=== PATIENT | male | born 1950 | race Caucasian/White ===

== ENCOUNTER 2018-05-06 17:34 | Inpatient (IN) | payer MEDICARE, SELFPAY ==
[2018-05-06] VITALS (8 sets, daily range): BP systolic 123–180; BP diastolic 69–106; PULSE 69–79; RESP 18; TEMP 36.4–36.8; O2SAT 85–94; BMI 41.1; BMI 40.4
--- NOTE | 2018-05-06 17:56 | EKG12_ITS ---
Test Reason : SYNCOPE Blood Pressure : / mmHG Vent. Rate : 069 BPM Atrial Rate : 069 BPM P-R Int : 238 ms QRS Dur : 106 ms QT Int : 462 ms P-R-T Axes : 014 -33 047 degrees QTc Int : 495 ms Sinus rhythm with 1st degree A-V block with occasional Premature ventricular complexes Left axis deviation Low voltage QRS Abnormal ECG Confirmed by SIS HYDE, SCHUYLER ([id number]), communications editor SARI PEREIRA ([id number]) on 05/08/2018 11:19:15 AM Referred By: Nina Castrejon Confirmed By:SCHUYLER ALEGRE MD
--- NOTE | 2018-05-06 18:00 | RAD_ITS ---
STUDY: X-RAY CHEST REASON FOR EXAM: Male, 67 years old. Syncopal episode at home today, nausea TECHNIQUE: AP COMPARISON: None. FINDINGS: EKG leads project over the chest. Lungs are underexpanded. Central pulmonary vascular congestion identified but no airspace consolidation. There is no demonstrated pleural abnormality. There is mild cardiac enlargement. Two lead cardiac conduction device is seen via the left subclavian vein with lead tips projecting over the right atrium and right ventricle, respectively. Normal visualized pulmonary arteries. There is atherosclerotic calcification of the aortic arch with tortuosity. Normal visualized thoracic spine. Normal visualized ribs, clavicles, and shoulders. There is no demonstrated abnormality of the visualized soft tissue structures of the upper abdomen. RAD/Chest 1 View (Portable) IMPRESSION: 1. No airspace consolidation or pleural effusion. 2. Suspect chronic CHF. Electronically Signed: Denis Fox MD at 19:10 EDT , Service support ,
--- NOTE | 2018-05-06 18:06 | ED.VISSUMM ---
- ER Visit Summary Date of Service: 05/06/18 Chief Complaint: Passed out at home History of Present Illness: The patient is a 67 M history of prior CVA, CAD, [place], CHF, cardiac stents, insulin-dependent diabetes, renal insufficiency and pacemaker defibrillator. Patient was not feeling well today and had a near syncopal event. Was given water and was feeling better. Later today he was standing up and had a syncopal episode where he passed out fell back on a chair of the couch. According to his he was unconscious for approximately 10 minutes. She did not feel like he was breathing. She called the squad who brought the patient into the emergency department. At that time his blood sugar was around 100. He denied any headache, chest pain, shortness of breath or abdominal pain prior to the episode. She states she is just been generally weak with decreased energy over the last several weeks. No fever. No recent hospitalizations. Physical Examination: Older male. Vital signs are stable. Afebrile. Pulse ox 93%. No hypoxia. That is on oxygen. H EENT exam unremarkable. No facial trauma. Pupils round reactive light. Neck nontender. Lungs clear to auscultation bilaterally. Heart regular rhythm no murmur. Chest wall nontender. Abdomen soft and nontender. Obese. No peritoneal signs. No pulsatile mass. Patient is moving all 4 extremities. They are neurovascularly intact. 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 Dorsi and plantar flexion intact. Back is nontender. Neurologically is awake and alert. Moving all 4 extremities. He is answering questions and following commands. There is no slurred speech. No focal motor deficits. Test Results: CBC White count 9. Hemoglobin 12. No old labs available for comparison. Chemistries unremarkable gap is 7 creatinine 1.2. Troponin normal. Chest x-ray borderline cardiomegaly with a left-sided pacer defibrillator. EKG sinus rhythm rate of 69 with PVCs and a first-degree AV block. No old EKG available for comparison. Orthostatic vital signs are negative. Emergency Department Course and Treatment: Male with syncopal episode that will need to be admitted. Treatment Plan: Repeat exam patient is doing well at 1900. I did speak to he and his he has a pacemaker defibrillator has been checked for about a year. He will need this interrogated and worked up for syncope. I have already spoken to the hospitalist and the patient will be admitted to the PCU. Disposition: Admission Impression: Acute syncope of uncertain etiology History of CAD, [place], CVA, cardiac stents, pacemaker defibrillator History of insulin-dependent diabetes This note was generated with [employer] dictation software. It may contain incorrect words, spelling, and punctuation that were not noted in review of the chart prior to signing ED Disposition - Plan for ED Patient: Referrals: Pancho Todd DO [STAFF PHYSICIAN] -
[2018-05-06 18:08] LABS: Absolute Lymphocyte Count 3.84 X10^3/ul (0.83-4.51); Absolute Neutrophil Count 5.1 X10^3/uL (2.0-7.7); Basophil# 0.04 X10^3/uL; Basophil% 0.4 % (0-1); Eosinophil# 0.26 X10^3/uL; Eosinophils% 2.7 % (0-5); Hematocrit 39.7 % (40-54); Hemoglobin 12.1 g/dl (13.0-16.5); Lymphocyte # 3.84 X10^3/ul (4.0); Lymphocyte % 39.2 % (19-41); Mean Corp Hgb Conc 30.5 g/gl (32-36); Mean Corpuscular Hgb 28.5 pg (27.0-32.0); Mean Corpuscular Volume 93.6 fL (80-94); Monocyte# 0.55 X10^3/uL; Monocyte% 5.6 % (0-10); Neutrophil # 5.09 X10^3/uL (2.7-7.7); Neutrophil % 51.9 % (47-70); Platelet Count 293 K/mm3 (150-450); RBC Distribution Width SD 44.2 fl (35.1-43.9); Red Blood Count 4.24 M/mm3 (4.6-6.2); White Blood Count 9.8 K/mm3 (4.4-11.0)
[2018-05-06 18:09] LABS: POSITIVE COUNT NO; POSITIVE DIFFERENTIAL NO; POSITIVE MORPHOLOGY NO
--- NOTE | 2018-05-06 18:09 | ED.DCSUM_ITS ---
- ER Visit Summary Date of Service: 05/06/18 Chief Complaint: Passed out at home History of Present Illness: The patient is a 67 M history of prior CVA, CAD, [place], CHF, cardiac stents, insulin-dependent diabetes, renal insufficiency and pacemaker defibrillator. Patient was not feeling well today and had a near syncopal event. Was given water and was feeling better. Later today he was standing up and had a syncopal episode where he passed out fell back on a chair of the couch. According to his he was unconscious for approximately 10 minutes. She did not feel like he was breathing. She called the squad who brought the patient into the emergency department. At that time his blood sugar was around 100. He denied any headache, chest pain, shortness of breath or abdominal pain prior to the episode. She states she is just been generally weak with decreased energy over the last several weeks. No fever. No recent hospitalizations. Physical Examination: Older male. Vital signs are stable. Afebrile. Pulse ox 93%. No hypoxia. That is on oxygen. H EENT exam unremarkable. No facial trauma. Pupils round reactive light. Neck nontender. Lungs clear to auscultation bilaterally. Heart regular rhythm no murmur. Chest wall nontender. Abdomen soft and nontender. Obese. No peritoneal signs. No pulsatile mass. Patient is moving all 4 extremities. They are neurovascularly intact. He has equal symmetrical radio division captain strength. Dorsi and plantar flexion intact. Back is nontender. Neurologically is awake and alert. Moving all 4 extremities. He is answering questions and following commands. There is no slurred speech. No focal motor deficits. Test Results: CBC White count 9. Hemoglobin 12. No old labs available for comparison. Chemistries unremarkable gap is 7 creatinine 1.2. Troponin normal. Chest x-ray borderline cardiomegaly with a left-sided pacer defibrillator. EKG sinus rhythm rate of 69 with PVCs and a first-degree AV block. No old EKG available for comparison. Orthostatic vital signs are negative. Emergency Department Course and Treatment: Male with syncopal episode that will need to be admitted. Treatment Plan: Repeat exam patient is doing well at 1900. I did speak to he and his he has a pacemaker defibrillator has been checked for about a year. He will need this interrogated and worked up for syncope. I have already spoken to the hospitalist and the patient will be admitted to the PCU. Disposition: Admission Impression: Acute syncope of uncertain etiology History of CAD, [place], CVA, cardiac stents, pacemaker defibrillator History of insulin-dependent diabetes This note was generated with [employer] dictation software. It may contain incorrect words, spelling, and punctuation that were not noted in review of the chart prior to signing ED Disposition - Plan for ED Patient: Referrals: Pancho Todd DO [STAFF PHYSICIAN] -
[2018-05-06 18:21] LABS: Anion Gap 7 (5-15); BUN 17 mg/dL (7-18); BUN/Creat Ratio 14.2 RATIO (10-20); Chloride 102 mmol/L (98-107); EST Glomerular Filtration Rate 64 mL/min (>60); Est Glom Filt Rate - Afr Amer 78 mL/min (>60); Estimated Creatinine Clearance 64.49 ml/min; Glucose 174 mg/dL (74-106); Potassium 4.5 mmol/L (3.5-5.1); Sodium Level 137 mmol/L (136-145)
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
[2018-05-06] MEDS: Ondansetron 4 MG/2 ML Vial IV (19:02)
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
--- NOTE | 2018-05-06 21:50 | ECHOCS_ITS ---
Reason For Study: SYNCOPE/NEAR SYNCOPE Procedure This was a 2D Doppler, Color Flow transthoracic echocardiogram. The study was technically difficult. The study was technically limited. Exam performed portable in patient room. Left Ventricle Moderately dilated left ventricle. The estimated ejection fraction is 25 %. Stage 2 diastolic dysfunction. There is moderate to severe global hypokinesis of the left ventricle. Right Ventricle Normal size and thickness. Normal systolic function. Atria Normal left atrium. Normal right atrium. Normal atrial septum. Mitral Valve The mitral valve is structurally normal. No prolapse or stenosis seen. Tricuspid Valve Normal tricuspid valve. Unable to estimate RV systolic pressure due to inadequate jet, pulmonary artery pressure probably normal. Aortic Valve Normal aortic valve. Trisinus/trileaflet aortic valve. Pulmonic Valve The pulmonic valve is not well visualized. Great Vessels Normal aortic root. Normal arch. Normal inferior vena cava. Inferior vena cava collapse with sniff. Pericardium/Pleural No pericardial effusion. Medication Diluted definity 4ml given slow IV push to enhance endocardial definition. MMode/2D Measurements & Calculations LVIDd: 5.7 cm IVSd: 1.0 cm Ao root diam: 3.5 cm LVIDs: 4.3 cm LVPWd: 0.98 cm FS: 25.0 % LAV(MOD-sp2): 56.9 ml LA dimension(2D): 3.6 cm Time Measurements MV dec time: 0.18 sec Doppler Measurements & Calculations MV E max nativiadd: 87.1 cm/sec Ao V2 max: 109.8 cm/sec LV V1 max: 77.1 cm/sec MV A max natividad: 65.8 cm/sec Ao max P.8 mmHg LV V1 max P.4 mmHg MV E/A: 1.3 PA V2 max: 95.7 cm/sec Interpretation Summary Moderately dilated left ventricle. The estimated ejection fraction is 25 %. Stage 2 diastolic dysfunction. There is moderate to severe global hypokinesis of the left ventricle. Unable to estimate RV systolic pressure due to inadequate jet, pulmonary artery pressure probably normal. The study was technically difficult. There is no comparison study available. Contrast injection was performed. Ordering Physician: Nina Castrejon Referring Physician: ADAMARIS WEINER Performed By: Shelly Meyers RDCS
--- NOTE | 2018-05-06 21:50 | CDU_ITS ---
Reason For Study: SYNCOPE Rt. Velocities/BP Lt. Velocities/BP Prox CCA 100/14 cm/sec. Prox CCA 127/16 cm/sec. Mid CCA 81/15 cm/sec. Mid CCA 107/23 cm/sec. Dist CCA 66/11 cm/sec. Dist CCA 71/15 cm/sec. Prox ICA 108/27 cm/sec. Prox ICA 81/25 cm/sec. Mid ICA 80/20 cm/sec. Mid ICA 134/40 cm/sec. Dist ICA 132/36 cm/sec. Lt. ICA/CCA = 1.25. Rt. ICA/CCA = 1.3. Prox ECA 74/8 cm/sec. Prox ECA 123/6 cm/sec. Lt. Vert. 41/2 cm/sec. Rt. Vert. 75/20 cm/sec. Right Extracranial There is heterogeneous, irregular atherosclerotic plaque noted in the right common carotid artery. There is heterogeneous, irregular atherosclerotic plaque noted in the right internal carotid artery. There is heterogeneous, irregular atherosclerotic plaque noted in the right external carotid artery. Antegrade flow is noted in the right vertebral artery. Left Extracranial There is heterogeneous, irregular atherosclerotic plaque noted in the left common carotid artery. The left internal carotid artery is not well visualized. The left external carotid artery is not well visualized. Antegrade flow is noted in the left vertebral artery. Procedure Carotid Duplex [id number]. The study was technically difficult. Exam performed portable in patient room. Interpretation Summary Mild (<50%) stenosis right extracranial internal carotid. Mild (<50%) stenosis left extracranial internal carotid. Atherosclerotic plaque is noted in the common carotid arteries bilaterally, which does not appear to be hemodynamically significant. The left internal carotid artery was not well visualized, and could not be fully assessed by carcamo-scale imaging. Clinical correlation is advised, and an alternative imaging modality may be helpful. Flow within the vertebral arteries is antegrade bilaterally. Ordering Physician: Nina Castrejon Referring Physician: ADAMARIS WEINER Performed By: Katie Gonzales, RDCS, RVT
--- NOTE | 2018-05-06 21:50 | RAD_ITS ---
STUDY: X-RAY - LEFT FOOT CLINICAL: Male, 67 years old. Left-sided foot infection. TECHNIQUE: 3 view(s) of the foot. COMPARISON: Prior comparison studies are not available for review at this time. FINDINGS: There are calcaneal spurs. The previous small erosions at the navicular, and cuneiforms. Tarsal bones have a generally normal appearance, otherwise. The joint spaces are mildly narrowed. There are lucencies within several proximal metatarsals and may represent erosions as well. Normal metatarsophalangeal joint of the great toe. Normal tibial and fibular sesamoid bones. Normal interphalangeal joint of the great toe. Normal phalanges of the great toe. Normal second through fifth metatarsophalangeal joints. Normal interphalangeal joints and phalanges of the lesser toes. There appear to be extensive vascular calcifications in the leg and ankle. There is no demonstrated fracture. RAD/Foot min 3 Views IMPRESSION: 1. Apparent erosive arthropathy of the midfoot. This suggests sequela of an inflammatory process. 2. Calcaneal spurs. Electronically Signed: Audrey Nolan MD at 9:14 EDT , Service support ,
[2018-05-06 22:20] LABS: Bedside Glucose 169 mg/dL (70-110)
[2018-05-06] MEDS: 0.9% Normal Saline 1,000 ML 100 ML IV (23:24)
[2018-05-06] MEDS: clonazePAM 1 MG Tablet 2 MG PO (23:24)
[2018-05-06] MEDS: 0.9% NaCl Peripheral Flush Adult/Peds IV (23:24)
[2018-05-06] MEDS: Atorvastatin Calcium 10 MG Tablet PO (23:25)
[2018-05-06] MEDS: Insulin Lispro 100 UNIT/ML INSULN.PEN SC (23:25)
[2018-05-06] MEDS: Carvedilol 12.5 MG Tablet PO (23:25)
[2018-05-07] VITALS (14 sets, daily range): BP systolic 119–133; BP diastolic 51–77; PULSE 59–72; RESP 16–18; TEMP 36.8–37.1; O2SAT 87–97
[2018-05-07 03:51] LABS: Absolute Lymphocyte Count 2.84 X10^3/ul (0.83-4.51); Absolute Neutrophil Count 4.7 X10^3/uL (2.0-7.7); Basophil# 0.03 X10^3/uL; Basophil% 0.4 % (0-1); Eosinophil# 0.09 X10^3/uL; Eosinophils% 1.1 % (0-5); Hematocrit 37.2 % (40-54); Hemoglobin 11.6 g/dl (13.0-16.5); Lymphocyte # 2.84 X10^3/ul (4.0); Lymphocyte % 34.6 % (19-41); Mean Corp Hgb Conc 31.2 g/gl (32-36); Mean Corpuscular Hgb 29.4 pg (27.0-32.0); Mean Corpuscular Volume 94.2 fL (80-94); Mean Platelet Vol. 9.8 fl (6.2-12.0); Monocyte# 0.54 X10^3/uL; Monocyte% 6.6 % (0-10); Neutrophil # 4.68 X10^3/uL (2.7-7.7); Neutrophil % 57.1 % (47-70); Platelet Count 219 K/mm3 (150-450); RBC Distribution Width CV 12.6 % (11.6-14.6); Red Blood Count 3.95 M/mm3 (4.6-6.2); White Blood Count 8.2 K/mm3 (4.4-11.0)
[2018-05-07 03:53] LABS: POSITIVE COUNT NO; POSITIVE DIFFERENTIAL NO; POSITIVE MORPHOLOGY NO
[2018-05-07 04:25] LABS: Anion Gap 10 (5-15); BUN 16 mg/dL (7-18); Chloride 104 mmol/L (98-107); Creatinine, Serum 1.07 mg/dL (0.70-1.30); EST Glomerular Filtration Rate 73 mL/min (>60); Est Glom Filt Rate - Afr Amer 89 mL/min (>60); Estimated Creatinine Clearance 70.12 ml/min; Glucose 145 mg/dL (74-106); Potassium 4.2 mmol/L (3.5-5.1); Sodium Level 142 mmol/L (136-145)
--- NOTE | 2018-05-07 05:55 | RAD_ITS ---
STUDY: X-RAY CHEST REASON FOR EXAM: Male, 67 years old. Syncope. Shortness of breath. TECHNIQUE: AP and lateral views of the chest. COMPARISON: Comparison is made with prior study dated May 06, 2018. FINDINGS: EKG electrodes are seen. The lungs are clear and expanded. There is no demonstrated pleural abnormality. There is moderate cardiac enlargement. A left-sided dual-chamber pacemaker is seen. Normal mediastinum and lakeisha. Normal visualized pulmonary arteries. Normal visualized aortic arch and descending thoracic aorta. Normal visualized thoracic spine. Normal visualized ribs, clavicles, and shoulders. There is no demonstrated abnormality of the visualized soft tissue structures of the upper abdomen. RAD/Chest PA and Lateral IMPRESSION: Cardiomegaly. No acute infiltration is seen. Electronically Signed: Sami Saravia, at 15:49 EDT , Service support ,
--- NOTE | 2018-05-07 05:55 | EKG12_ITS ---
Test Reason : AM EKG Blood Pressure : / mmHG Vent. Rate : 062 BPM Atrial Rate : 062 BPM P-R Int : 184 ms QRS Dur : 102 ms QT Int : 492 ms P-R-T Axes : 033 -21 -30 degrees QTc Int : 499 ms Normal sinus rhythm with sinus arrhythmia Low voltage QRS Old anterior/Septal [place] Abnormal ECG When compared with ECG of 06-MAY-2018 17:39, MANUAL COMPARISON REQUIRED, DATA IS UNCONFIRMED Confirmed by GRETA GUILLEN ([id number]), field map editor KIKE RIVERA ([id number]) on 05/12/2018 5:13:33 PM Referred By: Nina Castrejon Confirmed By:GRETA GUILLEN
[2018-05-07 06:51] LABS: Bedside Glucose 142 mg/dL (70-110)
[2018-05-07] MEDS: Ipratropium/Albuterol Sulfate 3 ML AMPUL.NEB INHALATION ×3 (07:18→19:38)
[2018-05-07] MEDS: Insulin Lispro 100 UNIT/ML INSULN.PEN 20 UNIT SC ×2 (09:18→18:07)
[2018-05-07] MEDS: Furosemide 20 MG Tablet PO (09:19)
[2018-05-07] MEDS: Carvedilol 12.5 MG Tablet PO ×2 (09:19→21:37)
[2018-05-07] MEDS: Rivaroxaban 20 MG Tablet PO (09:19)
[2018-05-07] MEDS: Citalopram 20 MG Tablet PO (09:19)
[2018-05-07] MEDS: Losartan Potassium 100 MG Tablet PO (09:19)
[2018-05-07] MEDS: Collagenase 30gm Tube 1 APPLIC TOPICAL (09:20)
[2018-05-07] MEDS: Glucerna Shake 120 ML LIQUID PO (09:22)
[2018-05-07] MEDS: clonazePAM 1 MG Tablet 2 MG PO ×2 (09:22→21:38)
[2018-05-07 11:15] LABS: Bedside Glucose 181 mg/dL (70-110)
--- NOTE | 2018-05-07 12:18 | NURSING ---
wound photo: left plantar foot
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
[2018-05-07] MEDS: Insulin Lispro 100 UNIT/ML INSULN.PEN SC (13:05)
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
--- NOTE | 2018-05-07 16:16 | CASEMGMT ---
RN BEAU NOTE: To room to talk with pt. Pt resting in bed and family @ bedside. Reviewed BUTLER form with pt and questions answered. Form signed by pt, copy made and placed on chart, and original given to pt. Pt and family made aware if they have any further questions, to ask for CM. Jojo TOVARN RN CM
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
[2018-05-07 16:46] LABS: Bedside Glucose 121 mg/dL (70-110)
[2018-05-07 17:16] LABS: Cholesterol 86 mg/dL (200); High Density Lipoprotein 34 mg/dL; Triglycerides 96 mg/dL; Very Low Density Lipoprotein 19 mg/dL (5-40)
[2018-05-07] MEDS: Losartan Potassium 50 MG Tablet PO (21:37)
[2018-05-07 23:45] LABS: Bedside Glucose 79 mg/dL (70-110)
[2018-05-08] VITALS (15 sets, daily range): BP systolic 107–147; BP diastolic 54–89; PULSE 62–78; RESP 16–18; TEMP 36.4–37.2; O2SAT 93–99
[2018-05-08 05:21] LABS: Absolute Lymphocyte Count 3.12 X10^3/ul (0.83-4.51); Absolute Neutrophil Count 4.3 X10^3/uL (2.0-7.7); Basophil# 0.04 X10^3/uL; Basophil% 0.5 % (0-1); Eosinophil# 0.29 X10^3/uL; Eosinophils% 3.4 % (0-5); Hematocrit 37.4 % (40-54); Hemoglobin 11.5 g/dl (13.0-16.5); Lymphocyte # 3.12 X10^3/ul (4.0); Lymphocyte % 36.9 % (19-41); Mean Corp Hgb Conc 30.7 g/gl (32-36); Mean Corpuscular Hgb 29.2 pg (27.0-32.0); Mean Corpuscular Volume 94.9 fL (80-94); Mean Platelet Vol. 9.6 fl (6.2-12.0); Monocyte# 0.69 X10^3/uL; Monocyte% 8.2 % (0-10); Neutrophil % 50.8 % (47-70); Platelet Count 208 K/mm3 (150-450); RBC Distribution Width CV 12.7 % (11.6-14.6); RBC Distribution Width SD 42.6 fl (35.1-43.9); Red Blood Count 3.94 M/mm3 (4.6-6.2); White Blood Count 8.5 K/mm3 (4.4-11.0)
[2018-05-08 05:26] LABS: POSITIVE COUNT NO; POSITIVE DIFFERENTIAL NO; POSITIVE MORPHOLOGY NO
[2018-05-08 05:29] LABS: International Normalized Ratio 1.5; Partial Thromboplast Time 42.3 Seconds (24.1-36.2)
[2018-05-08 05:35] LABS: ALB/GLOB Ratio 0.9 RATIO (0.9-2.4); AST(SGOT) 27 U/L (15-37); Alanine Aminotransfer ALT/SGPT 43 U/L (16-61); Albumin, Serum 3.1 g/dL (3.2-5.0); Alkaline Phosphatase 93 U/L (45-117); Anion Gap 4 (5-15); BUN 22 mg/dL (7-18); BUN/Creat Ratio 17.7 RATIO (10-20); Calcium,Total 7.9 mg/dL (8.5-10.1); Chloride 105 mmol/L (98-107); Cholesterol 88 mg/dL (200); Creatinine, Serum 1.24 mg/dL (0.70-1.30); EST Glomerular Filtration Rate 62 mL/min (>60); Est Glom Filt Rate - Afr Amer 75 mL/min (>60); Estimated Creatinine Clearance 60.51 ml/min; Globulin 3.6 g/dL (2.2-4.2); Glucose 95 mg/dL (74-106); High Density Lipoprotein 37 mg/dL; Magnesium 2.2 mg/dL (1.6-2.6); Phosphorus 3.7 mg/dL (2.5-4.9); Potassium 4.6 mmol/L (3.5-5.1); Protein, Total 6.7 g/dL (6.4-8.2); Sodium Level 141 mmol/L (136-145); Triglycerides 77 mg/dL; Very Low Density Lipoprotein 15 mg/dL (5-40)
--- NOTE | 2018-05-08 05:55 | EKG12_ITS ---
Test Reason : AM EKG Blood Pressure : / mmHG Vent. Rate : 062 BPM Atrial Rate : 062 BPM P-R Int : 186 ms QRS Dur : 106 ms QT Int : 476 ms P-R-T Axes : 008 -16 -03 degrees QTc Int : 483 ms Normal sinus rhythm Low voltage QRS Cannot rule out Anteroseptal infarct , age undetermined Abnormal ECG When compared with ECG of 07-MAY-2018 06:23, MANUAL COMPARISON REQUIRED, DATA IS UNCONFIRMED Confirmed by GRETA GUILLEN ([id number]), film editor supervisor KIKE RIVERA ([id number]) on 05/12/2018 5:15:03 PM Referred By: Nina Castrejon Confirmed By:GRETA GUILLEN
[2018-05-08] MEDS: 0.9% NaCl Peripheral Flush Adult/Peds IV (06:59)
[2018-05-08] MEDS: Losartan Potassium 50 MG Tablet PO ×2 (06:59→22:07)
[2018-05-08 07:05] LABS: Bedside Glucose 86 mg/dL (70-110)
[2018-05-08] MEDS: Ipratropium/Albuterol Sulfate 3 ML AMPUL.NEB INHALATION ×3 (07:13→19:43)
--- NOTE | 2018-05-08 08:00 | STEWCON_ITS ---
Reason For Study: CAD/ASHD Stress Results Protocol: Dobutamine with definity Maximum Predicted HR: 154 bpm Target HR: 131 bpm % Maximum Predicted HR: 85 % DurationHeart Rate Stage (mm:ss) (bpm) BP Dose Comment BASELINE 64 132/81 2 CC DEFINITY STAGE 1 3:00 63 141/9110.001 CC DEFINITY STAGE 2 3:00 88 202/82684.00 STAGE 3 3:00 112 182/9830.00 STAGE 4 2:35 131 / 40.001 CC DEFINITY RECOVERY 108 154/90 1 CC DEFINITY Stress Duration: 11:35 mm:ss Maximum Stress HR: 131 bpm Baseline Echocardiogram Findings The estimated ejection fraction is 35 %. Stress Echo Wall motion Data Resting WM Intermediate WM Stress WM Resting Wall Motion Wall Motion Stress Anterio-Basal: Severely Anterio-Basal: Severely hypokinetic. hypokinetic. Mid-Inferior: Mildly hypokinetic. EKG Data The baseline ECG displays normal sinus rhythm. The patient was titrated from 10 mcg to a maximum of 40 mcg of dobutamine during the stress. The maximum heart rate attained was 133 beats per minute. This was 86% of maximum predicted heart rate. During dobutamine infusion, there were no ST or T wave changes noted to suggest ischemia. No clinical angina was noted. Interpretation Summary The estimated ejection fraction is 35 %. Abnormal, adequate, dobutamine echocardiogram. Positive for ischemia by echocardiographic criteria. Patient had baseline severe anterior basal hypokinesis, and had progressively worsening inferior contractility with increasing dobutamine. Hypertensive response to dobutamine infusion. Rare PVCs noted. Excellent chronotropic response to dobutamine. Test terminated due to the attainment of target heart rate. No anginal symptoms. Final LVEF of 30%. No complications. The study was technically difficult. Contrast injection was performed. Ordering Physician: Gulshan Wick Referring Physician: Nina Castrejon Performed By: Rose Fleming, MICKY, RVT
--- NOTE | 2018-05-08 10:16 | PCM.PN.CARD ---
Subjectve: Patient doing well this morning. No 24-hour events. Orthostatics negative last night and today. Objective: Vital Signs Temp Pulse Resp BP Pulse Ox 98.5 F 63 16 122/54 H 97 05/08/18 06:57 05/08/18 07:29 05/08/18 07:13 05/08/18 06:57 05/08/18 07:13 Oxygen Flow Rate (L/min) 2 Oxygen Delivery Method Nasal Cannula Weight: 281 lb 12.012 oz Body Mass Index (BMI) 40.4 Orthostatic Vital Signs Start: 05/06/18 23:51 Freq: q24h Status: Active Protocol: Activity Type Activity Date Activity User E-Sign Co-Sign Detail Recorded Client Recorded Date Recorded By Document 05/08/18 06:44 NAIM[facility] [id number] 05/08/18 06:46 NAIMA 05/08/18 06:44 Orthostatic Vitals Standing -Blood Pressure (90/60-120/80) 143/82 H -Extremity Use Left Arm -Pulse Rate (60-100) 66 Sitting -Blood Pressure (90/60-120/80) 137/80 H -Extremity Use Left Arm -Pulse Rate (60-100) 67 Lying -Blood Pressure (90/60-120/80) 122/54 H -Extremity Use Left Arm -Pulse Rate (60-100) 62 Intake and Output for Last 24 Hours 05/06/18 05/07/18 05/08/18 23:59 23:59 23:59 Intake Total 1897 / 1897 120 / 120 Output Total 600 / 600 Balance 1297 / 1297 120 / 120 General: Awake, Alert, Oriented x 3 HEENT: PERRL, EOMI, Sclera Non Icteric Neck: Supple, Good ROM, No Lymph Node Enlargement Lungs: Clear to auscultation Cardiovascular: Regular Rhythm, Normal S1, Normal S2, No Murmurs, No Rubs, No Gallops Vascular: No Carotid Bruits, Normal Femoral Pulses, Normal Radial Pulses, Normal Dorsalis Pedal Pulse, Normal Posterior Tibial Pulses Abdomen: Bowel Sounds Present, Soft, Non Tender, No HSM, No Organomegaly Extremities: No Cyanosis, No Clubbing, No edema Neurological: No Focal Motor or Sensory Deficit 05/07/18 03:40: Triglycerides 96, Cholesterol 86, LDL Cholesterol 33, VLDL Cholesterol 19, HDL Cholesterol 34 L 05/08/18 05:05: Sodium 141, Potassium 4.6, Chloride 105, Carbon Dioxide 32.0, Anion Gap 4 L, BUN 22 H, Creatinine 1.24, Est GFR (MDRD) Af Amer 75, Est GFR (MDRD) Non-Af 62, BUN/Creatinine Ratio 17.7, Glucose 95, Calcium 7.9 L, Phosphorus 3.7, Magnesium 2.2, Total Bilirubin 0.50, Triglycerides 77, Cholesterol 88, LDL Cholesterol 36, VLDL Cholesterol 15, HDL Cholesterol 37 L 05/08/18 05:05: WBC 8.5, RBC 3.94 L, Hgb 11.5 L, Hct 37.4 L, MCV 94.9 H, MCH 29.2, MCHC 30.7 L, RDW 12.7, RDW Differential 42.6, Plt Count 208, MPV 9.6, Immature Gran % (Auto) 0.200, Neut % (Auto) 50.8, Lymph % (Auto) 36.9, [place] % (Auto) 8.2, Eos % (Auto) 3.4, Baso % (Auto) 0.5, Absolute Neuts (auto) 4.3, Total Counted Not Reportable 05/08/18 05:05: PT 18.0 H, INR 1.5, APTT 42.3 H Rhythm: EKG: ECHO: Stress Test: Abnormal adequate dobutamine echo. Hypertensive blood pressure response to dobutamine. Appeared to have inferior hypokinesis superimposed on baseline anteroseptal hypokinesis at rest. LVEF of 30%. Cardiac Cath: PCI: CT Surgery: Holter monitor: EPS: PPM: CXR: Chest CT Scan: Medical Necessity - Tobacco Use Smoking Status: Never smoker Tobacco Use: Non-smoker Assessment/Plan 1. Ischemic cardiomyopathy: The patient presents with a syncopal episode superimposed upon a recent GI illness, in the face of severe LV dysfunction and status post pacemaker/AICD. Interrogation of his pacemaker/AICD demonstrates no backup pacing, no ventricular arrhythmias, and no AICD discharges. Final result is pending. His initial troponin is very minimally elevated, and do not believe this would discount him from having a stress test. In addition the patient is on chronic Xarelto therapy and may have gotten it yesterday morning making cardiac catheterization somewhat problematic for today. Xarelto has been held since at least yesterday, and underwent a bit of an echocardiogram which was abnormal for inferior ischemia superimposed on baseline anteroseptal severe hypokinesis. As it is been 9 years since his last catheterization and given his recent syncopal episode, I believe is reasonable to proceed with a diagnostic coronary angiogram on Saturday. In the meantime we will continue baby aspirin, loading with Plavix 300 mg x1 now, and hold his Xarelto therapy. The patient does not require an intervention, I would discontinue his Plavix and switch him back to Xarelto for severe LV dysfunction and LV thrombus prevention. In the meantime I recommend continuing his Coreg 12.5 mg p.o. twice daily, breaking up his losartan into twice a day doses at 50 mg p.o. twice daily, continuing his Lasix and continue to check orthostatic blood pressures. In addition, would recommend changing Lasix to 40 mg a day, and adding Aldactone 25 mg p.o. daily to avoid congestive heart failure exacerbations. It does not appear that his syncope was a result of bradycardia and even if it was he has a backup pacemaker at 50 bpm. His heart has the ability to increase his heart rate with dobutamine stimulation, and he is not orthostatic on physical exam. 2. Hyperlipidemia: Repeat lipid profile. Continue statin based medicines. His LDL should be less than 70. 3. We await the results of his official pacemaker interrogation. 4. Thank you very much for the opportunity to precipitate in the cardiac care of your patient. Catheterization to follow tomorrow morning. Code Visit Inpatient E&M: 63013 Subs Hosp L2
[2018-05-08] MEDS: Clopidogrel Bisulfate 300 MG Tablet PO (10:54)
[2018-05-08] MEDS: clonazePAM 1 MG Tablet 2 MG PO ×2 (10:55→22:07)
[2018-05-08] MEDS: Citalopram 20 MG Tablet PO (10:55)
[2018-05-08] MEDS: Carvedilol 12.5 MG Tablet PO ×2 (10:55→22:06)
[2018-05-08] MEDS: Collagenase 30gm Tube 1 APPLIC TOPICAL (10:55)
[2018-05-08 11:11] LABS: Bedside Glucose 124 mg/dL (70-110)
--- NOTE | 2018-05-08 13:11 | PCM.PROGNOTE ---
Patient Problems: Active and Suspected Problems (Last Updated 05/07/18 @ 10:24 by Josie Forrest) Type 2 diabetes mellitus with diabetic polyneuropathy (Acute) Delayed wound healing (Acute) Syncope and collapse (Acute) Subjective: This 67 year old diabetic male was carefully examined and evaluated again today resting bedside with family in the room. Patient says he feels ok today, but it just tired from all of the testing he has had done. He relates that they would like to do a heart cath procedure tomorrow. Patient is being evaluated for ulcer sub left 1st met head. Patient denies any feelings of nausea, vomiting, fever, or chills. - Physical Exam General: Alert, Oriented x3, Cooperative Extremities: Capillary Refill Less than 3 Seconds - to distal digits of th eleft foot, No Calf Tenderness - Negative raul and vazquez signs, Diminished Peripheral Pulses - DP pulse palpable and PT pulse non palpable to left side, Edema - Slight lower extremity edema noted Skin: Ulcer/ Wound - Ulcer sub 1st met head of the left foot with fat layer exposed improved in appearance today. Base noted to be a mixture of adherent slough, fibrin, biofilm, granular tissue, and surrounding hyperkeratotic skin. There is no probing to bone, no tracking, no purulence, no malodor, no increased warmth or any other signs of local infection appreciated. Musculoskeletal: No Tenderness to Palpation of Joints or Extremities Neurological: - - epicritic sensation grossly absent to lower extremity Psych/Mental Status: Normal Affect, Appropriate Vital Signs Temp Pulse Resp BP Pulse Ox 97.6 F L 64 18 131/57 H 99 05/08/18 10:49 05/08/18 11:37 05/08/18 10:49 05/08/18 10:49 05/08/18 10:49 Oxygen Flow Rate (L/min) 2 Oxygen Delivery Method Nasal Cannula Weight: 127.8 kg Body Mass Index (BMI) 40.4 Orthostatic Vital Signs Start: 05/06/18 23:51 Freq: q24h Status: Active Protocol: Activity Type Activity Date Activity User E-Sign Co-Sign Detail Recorded Client Recorded Date Recorded By Document 05/08/18 06:44 NAIMA [id number] 05/08/18 06:46 NAIMA 05/08/18 06:44 Orthostatic Vitals Standing -Blood Pressure (90/60-120/80) 143/82 H -Extremity Use Left Arm -Pulse Rate (60-100) 66 Sitting -Blood Pressure (90/60-120/80) 137/80 H -Extremity Use Left Arm -Pulse Rate (60-100) 67 Lying -Blood Pressure (90/60-120/80) 122/54 H -Extremity Use Left Arm -Pulse Rate (60-100) 62 Intake and Output for Last 24 Hours 05/06/18 05/07/18 05/08/18 23:59 23:59 23:59 Intake Total 1897 / 1897 645 / 645 Output Total 600 / 600 Balance 1297 / 1297 645 / 645 Laboratory Tests Past 24 Hrs 05/07/18 05/08/18 05/08/18 03:40 05:05 05:05 WBC 8.5 RBC 3.94 L Hgb 11.5 L Hct 37.4 L MCV 94.9 H MCH 29.2 MCHC 30.7 L RDW 12.7 RDW Differential 42.6 Plt Count 208 MPV 9.6 Immature Gran % (Auto) 0.200 Neut % (Auto) 50.8 Lymph % (Auto) 36.9 [place] % (Auto) 8.2 Eos % (Auto) 3.4 Baso % (Auto) 0.5 Absolute Neuts (auto) 4.3 Absolute Lymphs (auto) 3.12 Total Counted Not Reportable PT INR APTT Sodium 141 Potassium 4.6 Chloride 105 Carbon Dioxide 32.0 Anion Gap 4 L BUN 22 H Creatinine 1.24 Estim Creat Clear Calc 60.51 Est GFR (MDRD) Af Amer 75 Est GFR (MDRD) Non-Af 62 BUN/Creatinine Ratio 17.7 Glucose 95 Calcium 7.9 L Phosphorus 3.7 Magnesium 2.2 Total Bilirubin 0.50 AST 27 ALT 43 Alkaline Phosphatase 93 Total Protein 6.7 Albumin 3.1 L Globulin 3.6 Albumin/Globulin Ratio 0.9 Triglycerides 96 77 Cholesterol 86 88 LDL Cholesterol 33 36 VLDL Cholesterol 19 15 HDL Cholesterol 34 L 37 L 05/08/18 05:05 WBC RBC Hgb Hct MCV MCH MCHC RDW RDW Differential Plt Count MPV Immature Gran % (Auto) Neut % (Auto) Lymph % (Auto) [place] % (Auto) Eos % (Auto) Baso % (Auto) Absolute Neuts (auto) Absolute Lymphs (auto) Total Counted PT 18.0 H INR 1.5 APTT 42.3 H Sodium Potassium Chloride Carbon Dioxide Anion Gap BUN Creatinine Estim Creat Clear Calc Est GFR (MDRD) Af Amer Est GFR (MDRD) Non-Af BUN/Creatinine Ratio Glucose Calcium Phosphorus Magnesium Total Bilirubin AST ALT Alkaline Phosphatase Total Protein Albumin Globulin Albumin/Globulin Ratio Triglycerides Cholesterol LDL Cholesterol VLDL Cholesterol HDL Cholesterol POC Glucose 05/08/18 05/08/18 05/07/18 11:01 06:44 21:36 POC Glucose 124 H 86 79 05/07/18 16:38 POC Glucose 121 H Medical Necessity - Tobacco Use Smoking Status: Never smoker Tobacco Use: Non-smoker Assessment/Plan All Active Problems (Last Updated 05/07/18 @ 10:24 by Josie Forrest) Type 2 diabetes mellitus with diabetic polyneuropathy (Acute) Delayed wound healing (Acute) Syncope and collapse (Acute) Ulcer sub left 1st metatarsal head with fat layer exposed DM with neuropathy Delayed wound healing multiple other comorbidities This patient was carefully examined and evaluated in detail again this afternoon with family in the room. No leukocytosis and vital signs stable. There remain no signs of local infection in the area of aforementioned ulcer site to left foot. Once ulcer evaluation and cleansing complete, the area was then dressed with aquacel ag to the base, followed by 2x2s, and jorge alberto. Dressing can be reapplied in this manner by nursing if it becomes loose. Patient's family member says they cannot find his offloading surgical shoe at home. We will order a new surgical shoe for this patient's left foot. He is to avoid going barefoot at all times. If he is up ambulating, he is to do this with assistance of his walker and heel weight bearing to left foot as well as wearing his offloading surgical shoe. He says he understands this. Patient will have heart cath tomorrow. Continued medical management for all other patient's comorbidities is appreciated by primary team. Patient says he would now like to follow back up with Dr. Hung once he is discharged for his left foot ulcer. I will continue to follow this patient for the duration of his stay in the hospital until discharge.
--- NOTE | 2018-05-08 14:33 | PCM.PROGNOTE ---
Patient Problems: Active and Suspected Problems (Last Updated 05/07/18 @ 10:24 by Josie Forrest) Type 2 diabetes mellitus with diabetic polyneuropathy (Acute) Delayed wound healing (Acute) Syncope and collapse (Acute) Subjective: All events of the past 24 hours of been reviewed. Stress echocardiogram was done today by Dr. Wick and is reported as being abnormal with criteria positive for ischemia. Ejection fraction was 35%. He achieved 86% of his age-predicted maximum heart rate. He is being scheduled for a cardiac catheterization on 05/09/2018. Xarelto is on hold. He received a loading dose of Plavix this morning. He is afebrile with stable vital signs. Oxygen saturation is 99% on a 2 L nasal cannula. All lab was personally reviewed. Hemoglobin is stable at 11.5. Platelets and white blood cell count are within normal limits. Liver panel is unremarkable. LDL is 36 and the HDL is 37. Blood sugars are well controlled. He has no complaints today. Denies CP, SOB. No palpitations Objective: PHYSICAL EXAM: GENERAL: alert, oriented X 3, Cooperative, NAD, lying flat in bed ORAL: moist mucosa, no mucosal lesions NECK: No JVD, supple, trachea midline LUNGS: CTA, symmetric chest expansion HEART: RRR, Normal S1 and S2, no rub, no gallop ABDOMEN: soft, NT, ND, BS present, no guarding with palpation, obese EXTREMITIES: no edema, no cyanosis, no calf tenderness SKIN: No rashes, no breakdown NEUROLOGIC: no focal neurologic deficits PSYCH: appropriate, normal affect, pleasant - Physical Exam Vital Signs Temp Pulse Resp BP Pulse Ox 97.6 F L 64 16 131/57 H 99 05/08/18 10:49 05/08/18 13:12 05/08/18 13:12 05/08/18 10:49 05/08/18 10:49 Oxygen Flow Rate (L/min) 2 Oxygen Delivery Method Nasal Cannula Weight: 281 lb 12.012 oz Body Mass Index (BMI) 40.4 Orthostatic Vital Signs Start: 05/06/18 23:51 Freq: q24h Status: Active Protocol: Activity Type Activity Date Activity User E-Sign Co-Sign Detail Recorded Client Recorded Date Recorded By Document 05/08/18 06:44 NAIMA [id number] 05/08/18 06:46 NAIMA 05/08/18 06:44 Orthostatic Vitals Standing -Blood Pressure (90/60-120/80 mm Hg) 143/82 H -Extremity Use Left Arm -Pulse Rate (60-100 beats/min) 66 Sitting -Blood Pressure (90/60-120/80 mm Hg) 137/80 H -Extremity Use Left Arm -Pulse Rate (60-100 beats/min) 67 Lying -Blood Pressure (90/60-120/80 mm Hg) 122/54 H -Extremity Use Left Arm -Pulse Rate (60-100 beats/min) 62 Intake and Output for Last 24 Hours 05/06/18 05/07/18 05/08/18 23:59 23:59 23:59 Intake Total 1897 / 1897 645 / 645 Output Total 600 / 600 Balance 1297 / 1297 645 / 645 Laboratory Tests Past 24 Hrs 05/07/18 05/08/18 05/08/18 03:40 05:05 05:05 WBC 8.5 RBC 3.94 L Hgb 11.5 L Hct 37.4 L MCV 94.9 H MCH 29.2 MCHC 30.7 L RDW 12.7 RDW Differential 42.6 Plt Count 208 MPV 9.6 Immature Gran % (Auto) 0.200 Neut % (Auto) 50.8 Lymph % (Auto) 36.9 [place] % (Auto) 8.2 Eos % (Auto) 3.4 Baso % (Auto) 0.5 Absolute Neuts (auto) 4.3 Absolute Lymphs (auto) 3.12 Total Counted Not Reportable PT INR APTT Sodium 141 Potassium 4.6 Chloride 105 Carbon Dioxide 32.0 Anion Gap 4 L BUN 22 H Creatinine 1.24 Estim Creat Clear Calc 60.51 Est GFR (MDRD) Af Amer 75 Est GFR (MDRD) Non-Af 62 BUN/Creatinine Ratio 17.7 Glucose 95 Calcium 7.9 L Phosphorus 3.7 Magnesium 2.2 Total Bilirubin 0.50 AST 27 ALT 43 Alkaline Phosphatase 93 Total Protein 6.7 Albumin 3.1 L Globulin 3.6 Albumin/Globulin Ratio 0.9 Triglycerides 96 77 Cholesterol 86 88 LDL Cholesterol 33 36 VLDL Cholesterol 19 15 HDL Cholesterol 34 L 37 L 05/08/18 05:05 WBC RBC Hgb Hct MCV MCH MCHC RDW RDW Differential Plt Count MPV Immature Gran % (Auto) Neut % (Auto) Lymph % (Auto) [place] % (Auto) Eos % (Auto) Baso % (Auto) Absolute Neuts (auto) Absolute Lymphs (auto) Total Counted PT 18.0 H INR 1.5 APTT 42.3 H Sodium Potassium Chloride Carbon Dioxide Anion Gap BUN Creatinine Estim Creat Clear Calc Est GFR (MDRD) Af Amer Est GFR (MDRD) Non-Af BUN/Creatinine Ratio Glucose Calcium Phosphorus Magnesium Total Bilirubin AST ALT Alkaline Phosphatase Total Protein Albumin Globulin Albumin/Globulin Ratio Triglycerides Cholesterol LDL Cholesterol VLDL Cholesterol HDL Cholesterol POC Glucose 05/08/18 05/08/18 05/07/18 11:01 06:44 21:36 POC Glucose 124 H 86 79 05/07/18 16:38 POC Glucose 121 H Medical Necessity - Tobacco Use Smoking Status: Never smoker Tobacco Use: Non-smoker Assessment/Plan All Active Problems (Last Updated 05/07/18 @ 10:24 by Josie Forrest) Type 2 diabetes mellitus with diabetic polyneuropathy (Acute) Delayed wound healing (Acute) Syncope and collapse (Acute) Impressions 1. Syncope with a few episodes of near syncope - etiology unknown at this time. Orthostatic blood pressures were borderline positive in the emergency room 2. Coronary artery disease with history of PTCA x2 in 1994-no cath or stress test since then 3. History of AICD placement in 2009 4. Diabetes mellitus type 2 uncontrolled-hemoglobin A1c is 9. Does not check his blood sugars at home. ? compliance with medications 5. Obesity 6. Normochromic normocytic anemia 7. ARAVIND-noncompliant with CPAP 8. Chronic systolic congestive heart failure - EF is 25% with global hypokinesis and a moderately dilated left ventricle 9. History of CVA 10. Hypertension 11. Hyperlipidemia 12. chronic renal failure stage 3 13. diastolic dysfunction stage 2 14. abnormal stress ECHO Plan is for cath in the AM NPO after MN Has been loaded with Plavix BS's have been low with his home insulin regimen.......we have had to decrease the insulin and Metformin was discontinued Continue ARB, Spironolactone, clopidogrel, aspirin, carvedilol, atorvastatin Code Visit Inpatient E&M: [id number] Subs Hosp L2
[2018-05-08 16:41] LABS: Bedside Glucose 126 mg/dL (70-110)
[2018-05-08] MEDS: Insulin Lispro 100 UNIT/ML INSULN.PEN 15 UNIT SC (17:28)
[2018-05-08] MEDS: Atorvastatin Calcium 10 MG Tablet PO (22:07)
[2018-05-08 23:41] LABS: Bedside Glucose 119 mg/dL (70-110)
[2018-05-09] VITALS (21 sets, daily range): BP systolic 99–129; BP diastolic 55–75; PULSE 60–79; RESP 16–18; TEMP 36.7–37; O2SAT 93–99
[2018-05-09 05:26] LABS: Absolute Lymphocyte Count 2.46 X10^3/ul (0.83-4.51); Absolute Neutrophil Count 7.7 X10^3/uL (2.0-7.7); Basophil# 0.04 X10^3/uL; Basophil% 0.4 % (0-1); Eosinophils% 3.5 % (0-5); Hematocrit 37.9 % (40-54); Hemoglobin 11.7 g/dl (13.0-16.5); Lymphocyte # 2.46 X10^3/ul (4.0); Lymphocyte % 21.6 % (19-41); Mean Corp Hgb Conc 30.9 g/gl (32-36); Mean Corpuscular Hgb 29.1 pg (27.0-32.0); Mean Corpuscular Volume 94.3 fL (80-94); Mean Platelet Vol. 9.9 fl (6.2-12.0); Monocyte# 0.81 X10^3/uL; Monocyte% 7.1 % (0-10); Neutrophil # 7.68 X10^3/uL (2.7-7.7); Neutrophil % 67.2 % (47-70); Platelet Count 229 K/mm3 (150-450); RBC Distribution Width CV 12.7 % (11.6-14.6); RBC Distribution Width SD 42.7 fl (35.1-43.9); Red Blood Count 4.02 M/mm3 (4.6-6.2); White Blood Count 11.4 K/mm3 (4.4-11.0)
[2018-05-09 05:32] LABS: POSITIVE COUNT NO; POSITIVE DIFFERENTIAL NO; POSITIVE MORPHOLOGY NO
[2018-05-09 05:40] LABS: Anion Gap 7 (5-15); BUN 22 mg/dL (7-18); BUN/Creat Ratio 16.9 RATIO (10-20); Chloride 104 mmol/L (98-107); EST Glomerular Filtration Rate 59 mL/min (>60); Est Glom Filt Rate - Afr Amer 71 mL/min (>60); Estimated Creatinine Clearance 57.71 ml/min; Glucose 141 mg/dL (74-106); International Normalized Ratio 1.3; Partial Thromboplast Time 38.1 Seconds (24.1-36.2); Potassium 4.3 mmol/L (3.5-5.1); Prothrombin Time (Protime)PT. 15.5 SECONDS (11.7-14.9); Sodium Level 141 mmol/L (136-145)
--- NOTE | 2018-05-09 05:55 | EKG12_ITS ---
Test Reason : AM EKG Blood Pressure : / mmHG Vent. Rate : 077 BPM Atrial Rate : 077 BPM P-R Int : 232 ms QRS Dur : 102 ms QT Int : 390 ms P-R-T Axes : 069 -25 078 degrees QTc Int : 441 ms Sinus rhythm with 1st degree A-V block Low voltage QRS Old AWMI Abnormal ECG When compared with ECG of 08-MAY-2018 05:45, MANUAL COMPARISON REQUIRED, DATA IS UNCONFIRMED Confirmed by GRETA GUILLEN ([id number]), movie editor KIKE RIVERA ([id number]) on 05/12/2018 5:16:59 PM Referred By: Nina Castrejon Confirmed By:GRETA GUILLEN
[2018-05-09] MEDS: Clopidogrel Bisulfate 75 MG Tablet PO (06:55)
[2018-05-09] MEDS: Losartan Potassium 50 MG Tablet PO ×2 (06:56→22:26)
[2018-05-09] MEDS: Carvedilol 12.5 MG Tablet PO ×2 (06:56→22:26)
[2018-05-09 07:05] LABS: Bedside Glucose 136 mg/dL (70-110)
[2018-05-09] MEDS: Ipratropium/Albuterol Sulfate 3 ML AMPUL.NEB INHALATION ×2 (07:26→23:33)
[2018-05-09] MEDS: Acetaminophen 325 MG Tablet 650 MG PO (08:41)
--- NOTE | 2018-05-09 09:33 | CASEMGMT ---
[facility] to [facility], the following are in-network tertiary facilities: [facility], [facility], [facility], [facility], [facility], [facility], [place], [facility], and . Jeramy BLANCO CM
[2018-05-09] MEDS: Aspirin 81 MG TAB.CHEW 324 MG PO (10:56)
[2018-05-09] MEDS: DiphenhydrAMINE 25 MG Capsule 50 MG PO (11:04)
[2018-05-09] MEDS: 0.9% NaCl Peripheral Flush Adult/Peds IV (11:06)
[2018-05-09 11:15] LABS: Bedside Glucose 141 mg/dL (70-110)
--- NOTE | 2018-05-09 12:16 | CL.D_ITS ---
Patient Name: OSKAR MICHEL Study Date: 05/09/2018 Performing: Gulshan Wick MD Ht: 70.07 inches 178 cm : 1950 Wt: 279.99 lbs 127 kg Age: 67 Gender: male BSA: 2.41 PROCEDURE(S) PERFORMED IH25-LQE/COR/LV CLINICAL PROFILE AND INDICATIONS Patient presents with NSTEMI for urgent cardiac cath Indications: Other/sycope, Stable Known CAD, Cardiac Arrythmia, Cardiomyopathy, LV Dysfunction Heart Failure: NYHA Class: 3, Newly Diagnosed: No, Heart Failure Type: Systolic Stress/Imaging Stress Echocardiogram: Yes Result: Positive Intermediate RiskStress Echocardiogram : Positive Intermediate Risk Angina Classification Anginal Classification w/in 2 Weeks: No symptoms CAD Presentations: No Sxs, no angina. Non-STEMI. Symptom onset Date/Time: 05/06/2018 Time Not Avai lable Comorbidities/Risk Factors: Hypertension Dyslipidemia Prior PCI Diabetes Mellitus: Diabetes Therapy: Insulin CONCLUSIONS Triple vessel CAD of the LAD, LCX and RCA. Global LV systolic dysfunction- Severe Elevated Left Ventricular End Diastolic Pressure LVEF: by LV gram 15%. RECOMMENDATIONS Viability study to eval for possible CABG to PDA and LAD. If no anterior or inferior viablity will p roceed with medical managent. Pt already has AICD. Restart Xarelto in 3 days for groin healing. ASA Indefinitely Management as per referring Interactive Graphic Designer DESCRIPTION OF PROCEDURE The patient arrived to the procedure lab. The risks and benefits of the procedure as well as a full d escription of our services here and current unavailability of surgical backup were fully explained to the patient and/or their significant other prior to the catheterization. The Timeout was completed, verifying the correct patient and procedure. The patient's procedural site was prepped and draped in the usual fashion. Local anesthetic was given subcutaneously to right groin region with Lidocaine 2%. Using a modified Seldinger technique, arterial access was obtained via the right femoral artery, a 4 Fr sheath was inserted Left Coronary Artery selective angiography was performed in multiple views us ing a 4 Fr. JL5 catheter. Right Coronary Artery selective angiography was then performed in multiple views using a 4 Fr. 3DRC catheter. Left Ventriculography was performed in JONES projection using a 4 Fr . Pigtail catheter. LV to AO pullback pressures were then recorded.The arterial sheath was pulled and manual compression applied until hemostasis is achieved. CORONARY ANGIOGRAPHY DOMINANCE: Right Dominant LEFT HEART ASSESSMENT Left Ventricular Ejection Fraction: by LV Gram 15 % Global Hypokinesis - Severe Depressed Left Ventricular systolic function LVEDP: 24 mmHg Elevated Left Ventricular End Diastolic Pressure LEFT MAIN: Moderate calcification, 50 % Stenosis LEFT ANTERIOR DECENDING ARTERY: OSTIAL LAD: is occluded CIRCUMFLEX ARTERY: is occluded RAMUS: Mild luminal irregularities less than 30% RIGHT CORONARY ARTERY: Moderate calcification PROX RCA: 60 % Stenosis MID RCA: Moderate luminal irregularities up to 50% DISTAL RCA: 75 % Stenosis, Instent restenosis 0 % RT PDA: Proximal - Moderate luminal irregularities up to 50% COLLATERAL FLOW: Collateral flow from Left to Left Collateral flow from Right to Left COMPLICATIONS No Complications PROCEDURE MEDICATIONS Oxygen: 2 L/min via nasal cannula SUMMARY OF HEMODYNAMIC DATA Time AIR REST ECG 11:29:40 AO 120/65 (88) SA 11:44:46 LV 121/3, 26 11:52:56 LV 119/5, 25 11:53:02 LVp 121/21, 46 11:53:24 AOp 122/60 (83) 11:53:29 Signed By Gulshan Wick MD On 05/09/2018 12:14:58 Gulshan Wick MD
--- NOTE | 2018-05-09 14:21 | PCM.PROGNOTE ---
Patient Problems: Active and Suspected Problems (Last Updated 05/07/18 @ 10:24 by Josie Forrest) Type 2 diabetes mellitus with diabetic polyneuropathy (Acute) Delayed wound healing (Acute) Syncope and collapse (Acute) Subjective: This 67 year old diabetic male was carefully examined and evaluated again today resting bedside with family in the room. Patient very tired and keeps falling asleep during exam from being tired from his heart cath procedure today. Patient is being evaluated for ulcer sub left 1st met head. Patient denies any feelings of nausea, vomiting, fever, or chills. - Physical Exam General: Alert, Oriented x3, Cooperative Extremities: Capillary Refill Less than 3 Seconds, No Calf Tenderness - Negative raul and vazquez signs, Diminished Peripheral Pulses - DP pulse palpable and PT pulse non palpable to the left side, Edema - slight lower extremity edema Skin: Ulcer/ Wound - Ulcer sub 1st met head of the left foot with fat layer exposed improved in appearance again today. Base noted to be a mixture of adherent fibrin and granular tissue, and surrounding hyperkeratotic skin. There is no probing to bone, no tracking, no purulence, no malodor, no increased warmth or any other signs of local infection appreciated. Musculoskeletal: No Tenderness to Palpation of Joints or Extremities Neurological: - - epicritic sensation grossly absent to lower extremity Psych/Mental Status: Normal Affect, Appropriate Vital Signs Temp Pulse Resp BP Pulse Ox 98.2 F 61 17 113/60 99 05/09/18 13:05 05/09/18 13:50 05/09/18 13:50 05/09/18 13:50 05/09/18 13:50 Oxygen Flow Rate (L/min) 2 Oxygen Delivery Method Nasal Cannula Weight: 127.2 kg Body Mass Index (BMI) 40.4 Orthostatic Vital Signs Start: 05/06/18 23:51 Freq: q24h Status: Active Protocol: Activity Type Activity Date Activity User E-Sign Co-Sign Detail Recorded Client Recorded Date Recorded By Document 05/09/18 06:00 NAIMA [id number] 05/09/18 06:50 NAIMA 05/09/18 06:00 Orthostatic Vitals Standing -Blood Pressure (90/60-120/80) 118/60 -Extremity Use Left Arm -Pulse Rate (60-100) 79 Sitting -Blood Pressure (90/60-120/80) 129/66 H -Extremity Use Left Arm -Pulse Rate (60-100) 77 Lying -Blood Pressure (90/60-120/80) 119/70 -Extremity Use Left Arm -Pulse Rate (60-100) 72 Intake and Output for Last 24 Hours 05/07/18 05/08/18 05/09/18 23:59 23:59 23:59 Intake Total 1897 / 1897 1415 / 1415 Output Total 600 / 600 Balance 1297 / 1297 1415 / 1415 Laboratory Tests Past 24 Hrs 05/09/18 05/09/18 05/09/18 05:10 05:10 05:10 WBC 11.4 H RBC 4.02 L Hgb 11.7 L Hct 37.9 L MCV 94.3 H MCH 29.1 MCHC 30.9 L RDW 12.7 RDW Differential 42.7 Plt Count 229 MPV 9.9 Immature Gran % (Auto) 0.200 Neut % (Auto) 67.2 Lymph % (Auto) 21.6 [place] % (Auto) 7.1 Eos % (Auto) 3.5 Baso % (Auto) 0.4 Absolute Neuts (auto) 7.7 Absolute Lymphs (auto) 2.46 Total Counted Not Reportable PT 15.5 H INR 1.3 APTT 38.1 H Sodium 141 Potassium 4.3 Chloride 104 Carbon Dioxide 30.0 Anion Gap 7 BUN 22 H Creatinine 1.30 Estim Creat Clear Calc 57.71 Est GFR (MDRD) Af Amer 71 Est GFR (MDRD) Non-Af 59 L BUN/Creatinine Ratio 16.9 Glucose 141 H Calcium 8.0 L POC Glucose 05/09/18 05/09/18 05/08/18 11:03 06:45 22:04 POC Glucose 141 H 136 H 119 H 05/08/18 16:35 POC Glucose 126 H Medical Necessity - Tobacco Use Smoking Status: Never smoker Tobacco Use: Non-smoker Assessment/Plan All Active Problems (Last Updated 05/07/18 @ 10:24 by Josie Forrest) Type 2 diabetes mellitus with diabetic polyneuropathy (Acute) Delayed wound healing (Acute) Syncope and collapse (Acute) Ulcer sub left 1st metatarsal head with fat layer exposed DM with neuropathy Delayed wound healing multiple other comorbidities This patient was carefully examined and evaluated in detail again this afternoon with family in the room. Vital signs remain stable. There remain no signs of local infection in the area of aforementioned ulcer site to left foot again today. Once ulcer evaluation and cleansing complete, the area was then dressed with aquacel ag to the base, followed by 2x2s, and jorge alberto. Dressing can be reapplied in this manner by nursing if it becomes loose or falls off again. He is to continue to avoid going barefoot at all times. If he is up ambulating, he is to do this with assistance of his walker and heel weight bearing to left foot with his offloading surgical shoe on. He says he understands this. Patient currently recovering from heart cath today. He is going to have some more testing on his heart tomorrow. Continued medical management for all other patient's comorbidities is appreciated by primary team. Patient says he would now like to follow back up with Dr. Hung once he is discharged for his left foot ulcer. I will continue to follow this patient for the duration of his stay in the hospital until discharge. Contact with any questions.
[2018-05-09] MEDS: Citalopram 20 MG Tablet PO (14:26)
[2018-05-09] MEDS: Spironolactone 25 MG Tablet PO (14:26)
--- NOTE | 2018-05-09 14:43 | CASEMGMT ---
RN BEAU assessment: Face to Face with patient for initial transition planning/care coordination assessment. RN BEAU introduced self and role at [facility], pt voices understanding and consents to assessment at this time. Pt is lying in bed in no distress at this time. Pt is A/Ox4 at this time and answers most questions appropriately at this time. Pt family at bedside during assessment but is not present at this time. Care providers, pharmacy, and demographics verified at this time. PCP: [facility] Specialists: Pt states has a heart and foot physician but is unsure of names at this time. [facility]erred [email or web address] Prescription Benefit: [employer] Living Will/HPOA: Pt states does not have LW/HPOA and declines info at this time. LNOK: Mary Olvera, Living Arrangements: Pt states lives in mobile home with with 6 steps/bilat rail into home. Pt states that helps with ADL's at home. Transportation: Pt states that drives most of time and states no transportation needs at this time. DME/HHC: Pt states has grab bars in bathroom but states no other DME at this time. Pt states that he is interested in a rollater and shower chair at this time. Call to [facility] and rep states that a rollater would be covered under [facility] but no shower supplies are. Pt/family aware at this time, voice understanding. Rollater script to be faxed to [facility] once signed by physician along with facesheet. Pt states would like [facility] set up at discharge but there is still a chance that pt may be transferred to tertiary facility once viability study complete. Call to Mirela at [facility] and she states that they can take pt for RN/PT/OT. Green sheet left on chart to notify [facility], if pt gets discharged from here and does not get transferred. Pt states no concerns with going home at time of discharge. Pt states is retired. Pt states does not smoke or drink ETOH. Pt/family states no further concerns/needs at this time. CM to follow for any further discharge planning/needs. Advised pt to ask for CM if any further questions/concerns/needs arise, voices understanding. Plan: Home w/ HHC vs transfer to tertiary facility, pending viability study. [place] FRANCIS YANEZ
[2018-05-09 16:36] LABS: Bedside Glucose 190 mg/dL (70-110)
[2018-05-09] MEDS: Insulin Lispro 100 UNIT/ML INSULN.PEN SC (16:57)
[2018-05-09] MEDS: Insulin Lispro 100 UNIT/ML INSULN.PEN 15 UNIT SC (16:57)
[2018-05-09] MEDS: Furosemide 40 MG Tablet PO (16:59)
--- NOTE | 2018-05-09 18:13 | NURSING ---
Faxed script for rolled walker to [facility].
--- NOTE | 2018-05-09 19:48 | PCM.PROGNOTE ---
Patient Problems: Active and Suspected Problems (Last Updated 05/07/18 @ 10:24 by Josie Forrest) Type 2 diabetes mellitus with diabetic polyneuropathy (Acute) Delayed wound healing (Acute) Syncope and collapse (Acute) Subjective: All events of the past 24 hours of been reviewed. Patient was taken for cardiac catheterization today by Dr. Gulshan Wick. Cardiac cath showed triple-vessel coronary artery disease of the LAD, LCx and RCA. There was severe left ventricular global dysfunction with a 15% EF. Viability study has been ordered for possible CABG to PAD and LAD. If no anterior or inferior viability he will continue with medical management. Denies chest pain, shortness of breath, palpitations, lightheadedness. Objective: GENERAL: alert, oriented X 3, Cooperative, NAD, lying flat in bed without SOB ORAL: moist mucosa, no mucosal lesions NECK: No JVD, supple, trachea midline LUNGS: CTA, symmetric chest expansion HEART: RRR, Normal S1 and S2, no rub, no gallop ABDOMEN: soft, NT, ND, BS present, no guarding with palpation, obese EXTREMITIES: no edema, no cyanosis, no calf tenderness SKIN: No rashes, no breakdown NEUROLOGIC: no focal neurologic deficits PSYCH: appropriate, normal affect, pleasant - Physical Exam Vital Signs Temp Pulse Resp BP Pulse Ox 98.0 F 62 17 111/57 L 95 05/09/18 16:20 05/09/18 18:56 05/09/18 16:20 05/09/18 16:20 05/09/18 16:20 Oxygen Flow Rate (L/min) 2 Oxygen Delivery Method Room Air Weight: 280 lb 6.848 oz Body Mass Index (BMI) 40.4 Orthostatic Vital Signs Start: 05/06/18 23:51 Freq: q24h Status: Active Protocol: Activity Type Activity Date Activity User E-Sign Co-Sign Detail Recorded Client Recorded Date Recorded By Document 05/09/18 06:00 NAIMA [id number] 05/09/18 06:50 NAIMA 05/09/18 06:00 Orthostatic Vitals Standing -Blood Pressure (90/60-120/80 mm Hg) 118/60 -Extremity Use Left Arm -Pulse Rate (60-100 beats/min) 79 Sitting -Blood Pressure (90/60-120/80 mm Hg) 129/66 H -Extremity Use Left Arm -Pulse Rate (60-100 beats/min) 77 Lying -Blood Pressure (90/60-120/80 mm Hg) 119/70 -Extremity Use Left Arm -Pulse Rate (60-100 beats/min) 72 Intake and Output for Last 24 Hours 05/07/18 05/08/18 05/09/18 23:59 23:59 23:59 Intake Total 1897 / 1897 1415 / 1415 650 / 650 Output Total 600 / 600 Balance 1297 / 1297 1415 / 1415 650 / 650 Laboratory Tests Past 24 Hrs 05/09/18 05/09/18 05/09/18 05:10 05:10 05:10 WBC 11.4 H RBC 4.02 L Hgb 11.7 L Hct 37.9 L MCV 94.3 H MCH 29.1 MCHC 30.9 L RDW 12.7 RDW Differential 42.7 Plt Count 229 MPV 9.9 Immature Gran % (Auto) 0.200 Neut % (Auto) 67.2 Lymph % (Auto) 21.6 [place] % (Auto) 7.1 Eos % (Auto) 3.5 Baso % (Auto) 0.4 Absolute Neuts (auto) 7.7 Absolute Lymphs (auto) 2.46 Total Counted Not Reportable PT 15.5 H INR 1.3 APTT 38.1 H Sodium 141 Potassium 4.3 Chloride 104 Carbon Dioxide 30.0 Anion Gap 7 BUN 22 H Creatinine 1.30 Estim Creat Clear Calc 57.71 Est GFR (MDRD) Af Amer 71 Est GFR (MDRD) Non-Af 59 L BUN/Creatinine Ratio 16.9 Glucose 141 H Calcium 8.0 L POC Glucose 05/09/18 05/09/18 05/09/18 16:25 11:03 06:45 POC Glucose 190 H 141 H 136 H 05/08/18 22:04 POC Glucose 119 H Medical Necessity - Tobacco Use Smoking Status: Never smoker Tobacco Use: Non-smoker Assessment/Plan All Active Problems (Last Updated 05/07/18 @ 10:24 by Josie Forrest) Type 2 diabetes mellitus with diabetic polyneuropathy (Acute) Delayed wound healing (Acute) Syncope and collapse (Acute) Impressions 1. Syncope with a few episodes of near syncope - etiology unknown at this time. Orthostatic blood pressures were borderline positive in the emergency room 2. Coronary artery disease with history of PTCA x2 in 1994-no cath or stress test since then 3. History of AICD placement in 2009 4. Diabetes mellitus type 2 uncontrolled-hemoglobin A1c is 9. Does not check his blood sugars at home. ? compliance with medications 5. Obesity 6. Normochromic normocytic anemia 7. ARAVIND-noncompliant with CPAP 8. Chronic systolic congestive heart failure - EF is 25% with global hypokinesis and a moderately dilated left ventricle 9. History of CVA 10. Hypertension 11. Hyperlipidemia 12. chronic renal failure stage 3 13. diastolic dysfunction stage 2 14. abnormal stress ECHO Lasix 40 mg twice daily and Spironolactone 25 mg daily have been added to the drug regimen. Viability study has been ordered and results should be available on Saturday. Met with his family and discuss why he is having a viability study. Code Visit Inpatient E&M: 85138 Subs Hosp L2
[2018-05-09] MEDS: Atorvastatin Calcium 10 MG Tablet PO (22:26)
[2018-05-09] MEDS: clonazePAM 1 MG Tablet 2 MG PO (22:27)
[2018-05-09 22:55] LABS: Bedside Glucose 104 mg/dL (70-110)
[2018-05-10] VITALS (13 sets, daily range): BP systolic 105–123; BP diastolic 56–73; PULSE 65–79; RESP 16–20; TEMP 36.8–37.2; O2SAT 90–97
[2018-05-10] MEDS: Acetaminophen 325 MG Tablet 650 MG PO (04:20)
[2018-05-10] MEDS: Ipratropium/Albuterol Sulfate 3 ML AMPUL.NEB INHALATION ×2 (06:49→19:22)
[2018-05-10 06:56] LABS: Bedside Glucose 120 mg/dL (70-110)
[2018-05-10] MEDS: Citalopram 20 MG Tablet PO (09:51)
[2018-05-10] MEDS: Carvedilol 12.5 MG Tablet PO ×2 (09:51→21:43)
[2018-05-10] MEDS: Spironolactone 25 MG Tablet PO (09:51)
[2018-05-10] MEDS: Losartan Potassium 50 MG Tablet PO ×2 (09:52→21:43)
[2018-05-10] MEDS: Furosemide 40 MG Tablet PO ×2 (09:53→17:02)
--- NOTE | 2018-05-10 10:13 | PCM.PROGNOTE ---
Patient Problems: Active and Suspected Problems (Last Updated 05/07/18 @ 10:24 by Josie Forrest) Type 2 diabetes mellitus with diabetic polyneuropathy (Acute) Delayed wound healing (Acute) Syncope and collapse (Acute) Subjective: This 67 year old diabetic male was carefully examined and evaluated again today resting bedside with family in the room. Patient resting comfortably in bed awaiting further heart testing procedures today. Patient is being evaluated for ulcer sub left 1st met head. Patient denies any feelings of nausea, vomiting, fever, or chills. - Physical Exam General: Alert, Oriented x3, Cooperative, No apparent distress Extremities: Capillary Refill Less than 3 Seconds - To the distal digits of the left foot, No Calf Tenderness - Negative Randal and Rachel signs, Diminished Peripheral Pulses - DP pulse palpable and PT pulse nonpalpable to the left side, Edema - Slight lower extremity edema Skin: Ulcer/ Wound - Ulcer sub 1st met head of the left foot with fat layer exposed. Base noted to be a mixture of adherent slough, fibrin, biofilm, granular tissue, and surrounding hyperkeratotic skin. There is no probing to bone, no tracking, no purulence, no malodor, no increased warmth. Pre debridement the ulcer measured 0.4 x 0.4 x 0.2 cm. Post debridmeent the ulcer measured 0.5 x 0.5 x 0.2 cm. Musculoskeletal: No Tenderness to Palpation of Joints or Extremities Neurological: - - Epicritic sensation grossly absent lower extremity Psych/Mental Status: Normal Affect, Appropriate Vital Signs Temp Pulse Resp BP Pulse Ox 98.5 F 66 16 120/64 97 05/10/18 09:58 05/10/18 09:58 05/10/18 09:58 05/10/18 09:58 05/10/18 09:58 Oxygen Flow Rate (L/min) 2 Oxygen Delivery Method Room Air Weight: 125.9 kg Body Mass Index (BMI) 40.4 Orthostatic Vital Signs Start: 05/06/18 23:51 Freq: q24h Status: Active Protocol: Activity Type Activity Date Activity User E-Sign Co-Sign Detail Recorded Client Recorded Date Recorded By Document 05/10/18 04:11 [facility] [id number] 05/10/18 04:15 [facility] 05/10/18 04:11 Orthostatic Vitals Standing -Blood Pressure (90/60-120/80) 110/61 -Extremity Use Right Arm -Pulse Rate (60-100) 69 Sitting -Blood Pressure (90/60-120/80) 115/71 -Extremity Use Right Arm -Pulse Rate (60-100) 70 Lying -Blood Pressure (90/60-120/80) 111/56 L -Extremity Use Right Arm -Pulse Rate (60-100) 68 Intake and Output for Last 24 Hours 05/08/18 05/09/18 05/10/18 23:59 23:59 23:59 Intake Total 1415 / 1415 890 / 890 Output Total 500 / 500 Balance 1415 / 1415 390 / 390 POC Glucose 05/10/18 05/09/18 05/09/18 06:51 22:19 16:25 POC Glucose 120 H 104 190 H 05/09/18 11:03 POC Glucose 141 H Medical Necessity - Tobacco Use Smoking Status: Never smoker Tobacco Use: Non-smoker Assessment/Plan All Active Problems (Last Updated 05/07/18 @ 10:24 by Josie Forrest) Type 2 diabetes mellitus with diabetic polyneuropathy (Acute) Delayed wound healing (Acute) Syncope and collapse (Acute) Ulcer sub left 1st metatarsal head with fat layer exposed DM with neuropathy Delayed wound healing multiple other comorbidities This patient was carefully examined and evaluated in detail again this morning with family in the room. Vital signs remain stable. There remain no signs of local infection in the area of aforementioned ulcer site to left foot again today. A subcutaneous excisional debridement was performed today to the ulcer site, debriding 100 percent of the ulcer site free of any adherent slough, fibrin, biofilm, and hyperkeratotic tissue. Patient tolerated this well. Very mild amount of bleeding noted. Hemostasis easily achieved with pressure. Area was debrided with number #5 curette. Pre debridement the ulcer measured 0.4 x 0.4 x 0.2 cm. Post debridmeent the ulcer measured 0.5 x 0.5 x 0.2 cm. Once complete, the area was cleansed and then dressed with aquacel ag to the base, followed by 2x2s, and jorge alberto. Dressing can be reapplied in this manner by nursing if it becomes loose or falls off again. He is to continue to avoid going barefoot at all times. If he is up ambulating, he is to do this with assistance of his walker and heel weight bearing to left foot with his offloading surgical shoe on. He says he understands this. He is going to have some more testing on his heart today. Continued medical management for all other patient's comorbidities is appreciated by primary team. Patient says he would now like to follow back up with Dr. Hung once he is discharged for his left foot ulcer. I will continue to follow this patient for the duration of his stay in the hospital until discharge. Contact with any questions.
--- NOTE | 2018-05-10 10:19 | PCM.PN.CARD ---
Subjectve: Patient doing very well this morning, up and out of bed without difficulty. Denies any right groin pain. No shortness of breath or dyspnea. Undergoing day 1 of 2 viability study today. Telemetry showed normal sinus rhythm with baseline left bundle branch block. Orthostatics negative. Objective: Vital Signs Temp Pulse Resp BP Pulse Ox 98.5 F 66 16 120/64 97 05/10/18 09:58 05/10/18 09:58 05/10/18 09:58 05/10/18 09:58 05/10/18 09:58 Oxygen Flow Rate (L/min) 2 Oxygen Delivery Method Room Air Weight: 277 lb 8.992 oz Body Mass Index (BMI) 40.4 Orthostatic Vital Signs Start: 05/06/18 23:51 Freq: q24h Status: Active Protocol: Activity Type Activity Date Activity User E-Sign Co-Sign Detail Recorded Client Recorded Date Recorded By Document 05/10/18 04:11 [facility] [id number] 05/10/18 04:15 [facility] 05/10/18 04:11 Orthostatic Vitals Standing -Blood Pressure (90/60-120/80) 110/61 -Extremity Use Right Arm -Pulse Rate (60-100) 69 Sitting -Blood Pressure (90/60-120/80) 115/71 -Extremity Use Right Arm -Pulse Rate (60-100) 70 Lying -Blood Pressure (90/60-120/80) 111/56 L -Extremity Use Right Arm -Pulse Rate (60-100) 68 Intake and Output for Last 24 Hours 05/08/18 05/09/18 05/10/18 23:59 23:59 23:59 Intake Total 1415 / 1415 890 / 890 Output Total 500 / 500 Balance 1415 / 1415 390 / 390 General: Awake, Alert, Oriented x 3 HEENT: PERRL, EOMI, Sclera Non Icteric Neck: Supple, Good ROM, No Lymph Node Enlargement Lungs: Clear to auscultation Cardiovascular: Regular Rhythm, Normal S1, Normal S2, No Murmurs, No Rubs, No Gallops Vascular: No Carotid Bruits, Normal Femoral Pulses, Normal Radial Pulses, Normal Dorsalis Pedal Pulse, Normal Posterior Tibial Pulses Abdomen: Bowel Sounds Present, Soft, Non Tender, No HSM, No Organomegaly Extremities: No Cyanosis, No Clubbing, No edema Neurological: No Focal Motor or Sensory Deficit Rhythm: EKG: ECHO: Stress Test: Cardiac Cath: PCI: CT Surgery: Holter monitor: EPS: PPM: CXR: Chest CT Scan: Medical Necessity - Tobacco Use Smoking Status: Never smoker Tobacco Use: Non-smoker Assessment/Plan 1. Ischemic cardiomyopathy: The patient presents with a syncopal episode superimposed upon a recent GI illness, in the face of severe LV dysfunction and status post pacemaker/AICD. Interrogation of his pacemaker/AICD demonstrates no backup pacing took place, no ventricular arrhythmias, and no AICD discharges. Final result showed an episode of 4 beats of nonsustained ventricular tachycardia in December 2017 but nothing recently. His initial troponin is very minimally elevated, and do not believe this would discount him from having a stress test. Xarelto has been held since at least the day of admission and underwent a dobutamine echocardiogram which was abnormal for inferior ischemia superimposed on baseline anteroseptal severe hypokinesis. Patient underwent diagnostic coronary angiogram yesterday which demonstrated severe multivessel coronary disease. Specifically had an occluded LAD, an occluded left circumflex, nonobstructive disease of a moderate size ramus branch, I widely patent distal RCA stent, probably significant distal RCA stenosis Segway into the PDA and moderate calcification and proximal nonobstructive disease of his RCA. In addition his LV function appeared to be around 15%. I recommend discontinuing his Plavix, continuing baby aspirin, and resuming his Xarelto tomorrow morning, Saturday after his groin is demonstrated healing. He is currently undergoing a viability study to determine if he has any anterior, lateral, or inferior viability and may benefit from multivessel bypass surgery. If any viability in these territories exist, we will need to have a conversation about possible high risk multivessel bypass surgery. If the patient has no significant viability in the anterior or inferior area, I would recommend continue medical management. We may want to consider upgrading his AICD/pacemaker to a TELEVISION EQUIPMENT OPERATOR device given his left bundle branch block and severe LV dysfunction. This would need to be done at an outside facility such as [facility]. In the meantime I recommend continuing his Coreg 12.5 mg p.o. twice daily, breaking up his losartan into twice a day doses at 50 mg p.o. twice daily, continuing his Lasix and continue to check orthostatic blood pressures. Orthostatics have been negative today. In addition, would recommend changing Lasix to 40 mg twice daily, and adding Aldactone 25 mg p.o. daily to avoid congestive heart failure exacerbations. It does not appear that his syncope was a result of bradycardia and even if it was he has a backup pacemaker at 50 bpm. His heart has the ability to increase his heart rate with dobutamine stimulation, and he is not orthostatic on physical exam. No evidence of pacemaker requirements during his syncopal episode after interrogation of his pacemaker. 2. Hyperlipidemia: His LDL is 38 and HDL is 37. Continue statin based medicines. His LDL should be less than 70. 3. Thank you very much for the opportunity to precipitate in the cardiac care of your patient. Patient's viability study will take at least 2 days, and when not be read until Saturday. Would recommend keeping the patient until Saturday until the results of been recorded. Code Visit Inpatient E&M: 12901 Subs Hosp L2
[2018-05-10 10:50] LABS: Bedside Glucose 162 mg/dL (70-110)
[2018-05-10 16:46] LABS: Bedside Glucose 175 mg/dL (70-110)
[2018-05-10] MEDS: Insulin Lispro 100 UNIT/ML INSULN.PEN SC (17:02)
[2018-05-10] MEDS: Insulin Lispro 100 UNIT/ML INSULN.PEN 15 UNIT SC (17:03)
--- NOTE | 2018-05-10 17:25 | PCM.PROGNOTE ---
Patient Problems: Active and Suspected Problems (Last Updated 05/07/18 @ 10:24 by Josie Forrest) Type 2 diabetes mellitus with diabetic polyneuropathy (Acute) Delayed wound healing (Acute) Syncope and collapse (Acute) Subjective: All events of the past 24 hours been reviewed. He remains afebrile. Vital signs are stable. He is maintaining and appropriate oxygen saturation on room air ranging from 92-97%. Tells me that he is urinating a lot Blood sugars are very well controlled Denies chest pain, shortness of breath, right groin pain, palpitations, lightheadedness. Orthostatic blood pressures are negative. Objective: GENERAL: alert, oriented X 3, Cooperative, NAD, lying flat in bed without SOB ORAL: moist mucosa, no mucosal lesions NECK: No JVD, supple, trachea midline LUNGS: CTA, symmetric chest expansion HEART: RRR, Normal S1 and S2, no rub, no gallop ABDOMEN: soft, NT, ND, BS present, no guarding with palpation, obese EXTREMITIES: no edema, no cyanosis, no calf tenderness SKIN: No rashes, no breakdown NEUROLOGIC: no focal neurologic deficits PSYCH: appropriate, normal affect, pleasant - Physical Exam Vital Signs Temp Pulse Resp BP Pulse Ox 98.3 F 78 20 H 105/59 L 92 05/10/18 16:00 05/10/18 16:00 05/10/18 16:00 05/10/18 16:00 05/10/18 16:00 Oxygen Flow Rate (L/min) 2 Oxygen Delivery Method Room Air Weight: 277 lb 8.992 oz Body Mass Index (BMI) 40.4 Orthostatic Vital Signs Start: 05/06/18 23:51 Freq: q24h Status: Active Protocol: Activity Type Activity Date Activity User E-Sign Co-Sign Detail Recorded Client Recorded Date Recorded By Document 05/10/18 04:11 [facility] [id number] 05/10/18 04:15 [facility] 05/10/18 04:11 Orthostatic Vitals Standing -Blood Pressure (90/60-120/80 mm Hg) 110/61 -Extremity Use Right Arm -Pulse Rate (60-100 beats/min) 69 Sitting -Blood Pressure (90/60-120/80 mm Hg) 115/71 -Extremity Use Right Arm -Pulse Rate (60-100 beats/min) 70 Lying -Blood Pressure (90/60-120/80 mm Hg) 111/56 L -Extremity Use Right Arm -Pulse Rate (60-100 beats/min) 68 Intake and Output for Last 24 Hours 05/08/18 05/09/18 05/10/18 23:59 23:59 23:59 Intake Total 1415 / 1415 890 / 890 720 / 720 Output Total 500 / 500 Balance 1415 / 1415 390 / 390 720 / 720 POC Glucose 05/10/18 05/10/18 05/10/18 16:04 10:44 06:51 POC Glucose 175 H 162 H 120 H 05/09/18 22:19 POC Glucose 104 Medical Necessity - Tobacco Use Smoking Status: Never smoker Tobacco Use: Non-smoker Assessment/Plan All Active Problems (Last Updated 05/07/18 @ 10:24 by Josie Forrest) Type 2 diabetes mellitus with diabetic polyneuropathy (Acute) Delayed wound healing (Acute) Syncope and collapse (Acute) Impressions 1. Syncope with a few episodes of near syncope - etiology unknown at this time. Orthostatic blood pressures were borderline positive in the emergency room 2. Coronary artery disease with history of PTCA x2 in 1994-no cath or stress test since then 3. History of AICD placement in 2009 4. Diabetes mellitus type 2 uncontrolled-hemoglobin A1c is 9. Does not check his blood sugars at home. ? compliance with medications 5. Obesity 6. Normochromic normocytic anemia 7. ARAVIND-noncompliant with CPAP 8. Chronic systolic congestive heart failure - EF is 25% with global hypokinesis and a moderately dilated left ventricle 9. History of CVA 10. Hypertension 11. Hyperlipidemia 12. chronic renal failure stage 3 13. diastolic dysfunction stage 2 14. abnormal stress ECHO Viability studies in progress Urine output has definitely increased with increasing Lasix to twice daily. Blood pressure is stable and the orthostatics are negative. Recheck a BMP in the a.m. Will discuss advanced directives with the patient and ask him to name a healthcare power of assistant attorney general in the event that he is unable to make decisions regarding his medical care. Code Visit Inpatient E&M: [id number] Subs Hosp L2
[2018-05-10] MEDS: Temazepam 15 MG Capsule PO (21:42)
[2018-05-10] MEDS: Atorvastatin Calcium 10 MG Tablet PO (21:44)
[2018-05-10] MEDS: clonazePAM 1 MG Tablet 2 MG PO (21:50)
[2018-05-10 23:01] LABS: Bedside Glucose 102 mg/dL (70-110)
[2018-05-11] VITALS (13 sets, daily range): BP systolic 89–130; BP diastolic 53–73; PULSE 61–78; RESP 15–21; TEMP 36.3–37.4; O2SAT 93–97
[2018-05-11 07:01] LABS: Bedside Glucose 133 mg/dL (70-110)
[2018-05-11] MEDS: Ipratropium/Albuterol Sulfate 3 ML AMPUL.NEB INHALATION ×2 (07:04→19:54)
[2018-05-11 07:35] LABS: Anion Gap 8 (5-15); BUN 23 mg/dL (7-18); BUN/Creat Ratio 18.1 RATIO (10-20); Calcium,Total 8.3 mg/dL (8.5-10.1); Chloride 100 mmol/L (98-107); Creatinine, Serum 1.27 mg/dL (0.70-1.30); EST Glomerular Filtration Rate 60 mL/min (>60); Est Glom Filt Rate - Afr Amer 73 mL/min (>60); Estimated Creatinine Clearance 59.08 ml/min; Glucose 121 mg/dL (74-106); Potassium 3.9 mmol/L (3.5-5.1); Sodium Level 139 mmol/L (136-145)
--- NOTE | 2018-05-11 09:27 | PCM.PN.CARD ---
Subjectve: Patient continues to improve and doing well. Able to lay down flat without any difficulty. Undergoing day 2 of his nuclear medicine viability study. Telemetry normal sinus rhythm with rare PVCs. Objective: Vital Signs Temp Pulse Resp BP Pulse Ox 97.4 F L 64 16 118/61 95 05/11/18 09:23 05/11/18 09:23 05/11/18 09:23 05/11/18 09:23 05/11/18 09:23 Oxygen Flow Rate (L/min) 2 Oxygen Delivery Method Room Air Weight: 277 lb 8.992 oz Body Mass Index (BMI) 40.4 Orthostatic Vital Signs Start: 05/06/18 23:51 Freq: q24h Status: Active Protocol: Activity Type Activity Date Activity User E-Sign Co-Sign Detail Recorded Client Recorded Date Recorded By Document 05/11/18 06:09 CAD [id number] 05/11/18 06:16 CAD 05/11/18 06:09 Orthostatic Vitals Standing -Blood Pressure (90/60-120/80) 89/53 L -Extremity Use Left Arm -Pulse Rate (60-100) 68 Sitting -Blood Pressure (90/60-120/80) 109/63 -Extremity Use Left Arm -Pulse Rate (60-100) 63 Lying -Blood Pressure (90/60-120/80) 105/65 -Extremity Use Left Arm -Pulse Rate (60-100) 61 Intake and Output for Last 24 Hours 05/09/18 05/10/18 05/11/18 23:59 23:59 23:59 Intake Total 890 / 890 720 / 720 120 / 120 Output Total 500 / 500 450 / 450 Balance 390 / 390 720 / 720 -330 / -330 General: Awake, Alert, Oriented x 3 HEENT: PERRL, EOMI, Sclera Non Icteric Neck: Supple, Good ROM, No Lymph Node Enlargement Lungs: Clear to auscultation Cardiovascular: Regular Rhythm, Normal S1, Normal S2, No Murmurs, No Rubs, No Gallops Vascular: No Carotid Bruits, Normal Femoral Pulses, Normal Radial Pulses, Normal Dorsalis Pedal Pulse, Normal Posterior Tibial Pulses Abdomen: Bowel Sounds Present, Soft, Non Tender, No HSM, No Organomegaly Extremities: No Cyanosis, No Clubbing, No edema Neurological: No Focal Motor or Sensory Deficit 05/11/18 05:30: Sodium 139, Potassium 3.9, Chloride 100, Carbon Dioxide 31.0, Anion Gap 8, BUN 23 H, Creatinine 1.27, Est GFR (MDRD) Af Amer 73, Est GFR (MDRD) Non-Af 60, BUN/Creatinine Ratio 18.1, Glucose 121 H, Calcium 8.3 L Rhythm: EKG: ECHO: Stress Test: Cardiac Cath: PCI: CT Surgery: Holter monitor: EPS: PPM: CXR: Chest CT Scan: Medical Necessity - Tobacco Use Smoking Status: Never smoker Tobacco Use: Non-smoker Assessment/Plan 1. Ischemic cardiomyopathy: The patient presents with a syncopal episode superimposed upon a recent GI illness, in the face of severe LV dysfunction and status post pacemaker/AICD. Interrogation of his pacemaker/AICD demonstrates no backup pacing took place, no ventricular arrhythmias, and no AICD discharges. Final result showed an episode of 4 beats of nonsustained ventricular tachycardia in December 2017 but nothing recently. His initial troponin is very minimally elevated, and do not believe this would discount him from having a stress test. Xarelto has been held since at least the day of admission and underwent a dobutamine echocardiogram which was abnormal for inferior ischemia superimposed on baseline anteroseptal severe hypokinesis. Patient underwent diagnostic coronary angiogram on 05/09/18 which demonstrated severe multivessel coronary disease. Specifically had an occluded LAD, an occluded left circumflex, nonobstructive disease of a moderate size ramus branch, I widely patent distal RCA stent, probably significant distal RCA stenosis Segway into the PDA and moderate calcification and proximal nonobstructive disease of his RCA. In addition his LV function appeared to be around 15%. I recommend discontinuing his Plavix, continuing baby aspirin, and resuming his Xarelto today, Saturday after his groin is demonstrated healing. He is currently undergoing a viability study to determine if he has any anterior, lateral, or inferior viability and may benefit from multivessel bypass surgery. If any viability in these territories exist, we will need to have a conversation about possible high risk multivessel bypass surgery. If the patient has no significant viability in the anterior or inferior area, I would recommend continue medical management. We may want to consider upgrading his AICD/pacemaker to a MANAGER STRATEGIC MARKETING device given his left bundle branch block and severe LV dysfunction. This would need to be done at an outside facility such as [facility]. In the meantime I recommend continuing his Coreg 12.5 mg p.o. twice daily, breaking up his losartan into twice a day doses at 50 mg p.o. twice daily, continuing his Lasix and continue to check orthostatic blood pressures. Orthostatics have been negative today. In addition, would recommend changing Lasix to 40 mg twice daily, and adding Aldactone 25 mg p.o. daily to avoid congestive heart failure exacerbations. It does not appear that his syncope was a result of bradycardia and even if it was he has a backup pacemaker at 50 bpm. His heart has the ability to increase his heart rate with dobutamine stimulation, and he is not orthostatic on physical exam. No evidence of pacemaker requirements during his syncopal episode after interrogation of his pacemaker. 2. Hyperlipidemia: His LDL is 38 and HDL is 37. Continue statin based medicines. His LDL should be less than 70. 3. Thank you very much for the opportunity to participate in the cardiac care of your patient. Patient's viability study will take at least 2 days, and when not be read until Saturday. Would recommend keeping the patient until Saturday until the results of been recorded. Discussed with patient's . Code Visit Inpatient E&M: [id number] Subs Hosp L2
--- NOTE | 2018-05-11 09:31 | PN.CARD_ITS ---
Subjectve: Patient continues to improve and doing well. Able to lay down flat without any difficulty. Undergoing day 2 of his nuclear medicine viability study. Telemetry normal sinus rhythm with rare PVCs. Objective: Vital Signs Temp Pulse Resp BP Pulse Ox 97.4 F L 64 16 118/61 95 05/11/18 09:23 05/11/18 09:23 05/11/18 09:23 05/11/18 09:23 05/11/18 09:23 Oxygen Flow Rate (L/min) 2 Oxygen Delivery Method Room Air Weight: 277 lb 8.992 oz Body Mass Index (BMI) 40.4 Orthostatic Vital Signs Start: 05/06/18 23:51 Freq: q24h Status: Active Protocol: Activity Type Activity Date Activity User E-Sign Co-Sign Detail Recorded Client Recorded Date Recorded By Document 05/11/18 06:09 CAD [id number] 05/11/18 06:16 CAD 05/11/18 06:09 Orthostatic Vitals Standing -Blood Pressure (90/60-120/80) 89/53 L -Extremity Use Left Arm -Pulse Rate (60-100) 68 Sitting -Blood Pressure (90/60-120/80) 109/63 -Extremity Use Left Arm -Pulse Rate (60-100) 63 Lying -Blood Pressure (90/60-120/80) 105/65 -Extremity Use Left Arm -Pulse Rate (60-100) 61 Intake and Output for Last 24 Hours 05/09/18 05/10/18 05/11/18 23:59 23:59 23:59 Intake Total 890 / 890 720 / 720 120 / 120 Output Total 500 / 500 450 / 450 Balance 390 / 390 720 / 720 -330 / -330 General: Awake, Alert, Oriented x 3 HEENT: PERRL, EOMI, Sclera Non Icteric Neck: Supple, Good ROM, No Lymph Node Enlargement Lungs: Clear to auscultation Cardiovascular: Regular Rhythm, Normal S1, Normal S2, No Murmurs, No Rubs, No Gallops Vascular: No Carotid Bruits, Normal Femoral Pulses, Normal Radial Pulses, Normal Dorsalis Pedal Pulse, Normal Posterior Tibial Pulses Abdomen: Bowel Sounds Present, Soft, Non Tender, No HSM, No Organomegaly Extremities: No Cyanosis, No Clubbing, No edema Neurological: No Focal Motor or Sensory Deficit 05/11/18 05:30: Sodium 139, Potassium 3.9, Chloride 100, Carbon Dioxide 31.0, Anion Gap 8, BUN 23 H, Creatinine 1.27, Est GFR (MDRD) Af Amer 73, Est GFR (MDRD) Non-Af 60, BUN/Creatinine Ratio 18.1, Glucose 121 H, Calcium 8.3 L Rhythm: EKG: ECHO: Stress Test: Cardiac Cath: PCI: CT Surgery: Holter monitor: EPS: PPM: CXR: Chest CT Scan: Medical Necessity - Tobacco Use Smoking Status: Never smoker Tobacco Use: Non-smoker Assessment/Plan 1. Ischemic cardiomyopathy: The patient presents with a syncopal episode superimposed upon a recent GI illness, in the face of severe LV dysfunction and status post pacemaker/AICD. Interrogation of his pacemaker/AICD demonstrates no backup pacing took place, no ventricular arrhythmias, and no AICD discharges. Final result showed an episode of 4 beats of nonsustained ventricular tachycardia in December 2017 but nothing recently. His initial troponin is very minimally elevated, and do not believe this would discount him from having a s tress test. Xarelto has been held since at least the day of admission and underwent a dobutamine echocardiogram which was abnormal for inferior ischemia superimposed on baseline anteroseptal severe hypokinesis. Patient underwent diagnostic coronary angiogram on 05/09/18 which demonstrated severe multivessel coronary disease. Specifically had an occluded LAD, an occluded left circumflex, nonobstructive disease of a moderate size ramus branch, I widely patent distal RCA stent, probably significant distal RCA stenosis Segway into the PDA and moderate calcification and proximal nonobstructive disease of his RCA. In addition his LV function appeared to be around 15%. I recommend discontinuing his Plavix, continuing baby aspirin, and resuming his Xarelto today, Saturday after his groin is demonstrated healing. He is currently undergoing a viability study to determine if he has any anterior, lateral, or inferior viability and may benefit from multivessel bypass surgery. If any viability in these territories exist, we will need to have a conversation about possible high risk multivessel bypass surgery. If the patient has no significant viability in the anterior or inferior area, I would recommend continue medical management. We may want to consider upgrading his AICD/pacemaker to a HISTORICAL RECORDS ADMINISTRATOR device given his left bundle branch block and severe LV dysfunction. This would need to be done at an outside facility such as [facility]. In the meantime I recommend continuing his Coreg 12.5 mg p.o. twice daily, breaking up his losartan into twice a day doses at 50 mg p.o. twice daily, co ntinuing his Lasix and continue to check orthostatic blood pressures. Orthostatics have been negative today. In addition, would recommend changing Lasix to 40 mg twice daily, and adding Aldactone 25 mg p.o. daily to avoid congestive heart failure exacerbations. It does not appear that his syncope was a result of bradycardia and even if it was he has a backup pacemaker at 50 bpm. His heart has the ability to increase his heart rate with dobutamine stimulation, and he is not orthostatic on physical exam. No evidence of pacemaker requirements during his syncopal episode after interrogation of his pacemaker. 2. Hyperlipidemia: His LDL is 38 and HDL is 37. Continue statin based medicines. His LDL should be less than 70. 3. Thank you very much for the opportunity to participate in the cardiac care of your patient. Patient's viability study will take at least 2 days, and when not be read until Saturday. Would recommend keeping the patient until Saturday until the results of been recorded. Discussed with patient's . Code Visit Inpatient E&M: 33656 Subs Hosp L2
[2018-05-11] MEDS: Insulin Lispro 100 UNIT/ML INSULN.PEN 18 UNIT SC (09:36)
[2018-05-11] MEDS: Spironolactone 25 MG Tablet PO (09:36)
[2018-05-11] MEDS: Citalopram 20 MG Tablet PO (09:37)
[2018-05-11] MEDS: Carvedilol 12.5 MG Tablet PO ×2 (09:37→22:20)
[2018-05-11] MEDS: Losartan Potassium 50 MG Tablet PO ×2 (09:37→22:20)
[2018-05-11] MEDS: clonazePAM 1 MG Tablet 2 MG PO ×2 (09:37→22:21)
[2018-05-11] MEDS: Furosemide 40 MG Tablet PO ×2 (09:37→17:44)
[2018-05-11 11:26] LABS: Bedside Glucose 170 mg/dL (70-110)
[2018-05-11] MEDS: Insulin Lispro 100 UNIT/ML INSULN.PEN SC ×2 (11:58→22:20)
--- NOTE | 2018-05-11 12:40 | PN_ITS ---
Patient Problems: Active and Suspected Problems (Last Updated 05/07/18 @ 10:24 by Josie Forrest) Type 2 diabetes mellitus with diabetic polyneuropathy (Acute) Delayed wound healing (Acute) Syncope and collapse (Acute) Subjective: The patient is a 67-year-old man with obstructive sleep apnea (noncompliant with CPAP), chronic systolic congestive heart failure, AICD placement, morbid obesity, TBI, history of CVA, hypertension, hyperlipidemia, coronary artery disease, diabetes mellitus type 2 and chronic renal failure stage III who was brought to the emergency department at [facility] following a syncopal event at home. Orthostatic VS's were mildly +. Interrogation of the PM/ICD showed it had not fired and there was no significant ectopy. Troponin was very mildly increased and stress was done which was abnormal. He went for cardiac cath and it showed triple-vessel coronary artery disease of the LAD, LCx and RCA. There was global left ventricular systolic dysfunction with an ejection fraction estimated at 15%. He is currently in the process of a viability study and the results will be available on Saturday. Afebrile, vital signs stable, 95% on room air. BMP today shows potassium of 3.9 and a BUN of 23 with a creatinine of 1.27 which is stable. Blood sugars are well controlled. Orthostatic vital signs are negative today. Telemetry: Normal sinus rhythm with rare PVCs. Denies chest pain, shortness of breath, palpitations. He ambulated in the nelson today and went 175 ft. No LOB. he has decreased activity tolerance. Objective: GENERAL: alert, oriented X 3, Cooperative, NAD, lying flat in bed without SOB ORAL: moist mucosa, no mucosal lesions NECK: No JVD, supple, trachea midline LUNGS: CTA, symmetric chest expansion HEART: RRR, Normal S1 and S2, no rub, no gallop ABDOMEN: soft, NT, ND, BS present, no guarding with palpation, obese EXTREMITIES: no edema, no cyanosis, no calf tenderness SKIN: No rashes, no breakdown NEUROLOGIC: no focal neurologic deficits PSYCH: appropriate, normal affect, pleasant - Physical Exam Vital Signs Temp Pulse Resp BP Pulse Ox 97.4 F L 69 16 118/61 95 05/11/18 09:23 05/11/18 11:27 05/11/18 09:23 05/11/18 09:23 05/11/18 09:23 Oxygen Flow Rate (L/min) 2 Oxygen Delivery Method Room Air Weight: 277 lb 8.992 oz Body Mass Index (BMI) 40.4 Orthostatic Vital Signs Start: 05/06/18 23:51 Freq: q24h Status: Active Protocol: Activity Type Activity Date Activity User E-Sign Co-Sign Detail Recorded Client Recorded Date Recorded By Document 05/11/18 06:09 CAD [id number] 05/11/18 06:16 CAD 05/11/18 06:09 Orthostatic Vitals Standing -Blood Pressure (90/60-120/80 mm Hg) 89/53 L -Extremity Use Left Arm -Pulse Rate (60-100 beats/min) 68 Sitting -Blood Pressure (90/60-120/80 mm Hg) 109/63 -Extremity Use Left Arm -Pulse Rate (60-100 beats/min) 63 Lying -Blood Pressure (90/60-120/80 mm Hg) 105/65 -Extremity Use Left Arm -Pulse Rate (60-100 beats/min) 61 Intake and Output for Last 24 Hours 05/09/18 05/10/18 05/11/18 23:59 23:59 23:59 Intake Total 890 / 890 720 / 720 600 / 600 Output Total 500 / 500 450 / 450 Balance 390 / 390 720 / 720 150 / 150 Laboratory Tests Past 24 Hrs 05/11/18 05:30 Sodium 139 Potassium 3.9 Chloride 100 Carbon Dioxide 31.0 Anion Gap 8 BUN 23 H Creatinine 1.27 Estim Creat Clear Calc 59.08 Est GFR (MDRD) Af Amer 73 Est GFR (MDRD) Non-Af 60 BUN/Creatinine Ratio 18.1 Glucose 121 H Calcium 8.3 L POC Glucose 05/11/18 05/11/18 05/10/18 11:19 06:43 21:41 POC Glucose 170 H 133 H 102 05/10/18 16:04 POC Glucose 175 H Medical Necessity - Tobacco Use Smoking Status: Never smoker Tobacco Use: Non-smoker Assessment/Plan All Active Problems (Last Updated 05/07/18 @ 10:24 by Josie Forrest) Type 2 diabetes mellitus with diabetic polyneuropathy (Acute) Delayed wound healing (Acute) Syncope and collapse (Acute) Impressions 1. Syncope with a few episodes of near syncope - etiology unknown at this time. Orthostatic blood pressures were borderline positive in the emergency room....no sx while in the hospital 2. Coronary artery disease with history of PTCA x2 in 1994-no cath or stress test since then until 05/09/18 3. History of AICD placement in 2009 4. Diabetes mellitus type 2 uncontrolled-hemoglobin A1c is 9. Does not check his blood sugars at home. ? compliance with medications 5. Obesity 6. Normochromic normocytic anemia 7. ARAVIND-noncompliant with CPAP 8. Chronic systolic congestive heart failure - EF is 15% with global hypokinesis and a moderately dilated left ventricle 9. History of CVA 10. Hypertension 11. Hyperlipidemia 12. chronic renal failure stage 3 13. diastolic dysfunction stage 2 14. abnormal stress ECHO - had a cath 05/09/[address] Wick 15. History of TBI CODE STATUS: Discussed code status at length with Pancho and his including the difference between FULL CODE, DNR CCA and DNR CC status. All questions were answered. An order for DNR CC arrest was entered into the computer. A total of 20 minutes face to face time was devoted to advanced care planning. He would like to complete a HC POA while in the hospital and have his be t he decision maker and she would like one of the children named as the second decision maker in the event that she is unable to make the decision. DNR Comfort Care form was completed and the pt signed. Will have the SW/DC complete a HC POA form with them prior to DC. MOLST completed. Results of the Viability study will be available tomorrow. Add potassium 10 MEQ daily to keep the K at 4 or greater. Code Visit Inpatient E&M: 28600 Subs Hosp L2 Procedures: 82038 Advncd Care Plan 30 Min
[2018-05-11 17:00] LABS: Bedside Glucose 149 mg/dL (70-110)
[2018-05-11] MEDS: Insulin Lispro 100 UNIT/ML INSULN.PEN 15 UNIT SC (17:40)
[2018-05-11] MEDS: 0.9% NaCl Peripheral Flush Adult/Peds IV (17:41)
[2018-05-11] MEDS: Rivaroxaban 20 MG Tablet PO (17:44)
[2018-05-11] MEDS: Atorvastatin Calcium 10 MG Tablet PO (22:21)
[2018-05-11] MEDS: Temazepam 15 MG Capsule PO (22:27)
[2018-05-11 22:51] LABS: Bedside Glucose 161 mg/dL (70-110)
[2018-05-12] VITALS (12 sets, daily range): BP systolic 91–127; BP diastolic 53–73; PULSE 60–74; RESP 16; TEMP 36.6–37; O2SAT 91–94
[2018-05-12 06:35] LABS: Anion Gap 2 (5-15); BUN 29 mg/dL (7-18); BUN/Creat Ratio 20.4 RATIO (10-20); Calcium,Total 8.3 mg/dL (8.5-10.1); Chloride 99 mmol/L (98-107); Creatinine, Serum 1.42 mg/dL (0.70-1.30); EST Glomerular Filtration Rate 53 mL/min (>60); Est Glom Filt Rate - Afr Amer 64 mL/min (>60); Estimated Creatinine Clearance 52.84 ml/min; Glucose 175 mg/dL (74-106); Potassium 4.1 mmol/L (3.5-5.1); Sodium Level 135 mmol/L (136-145)
[2018-05-12 07:15] LABS: Bedside Glucose 179 mg/dL (70-110)
[2018-05-12] MEDS: Ipratropium/Albuterol Sulfate 3 ML AMPUL.NEB INHALATION ×2 (07:39→13:13)
--- NOTE | 2018-05-12 07:46 | STRESSREP ---
Stress Test Report 2-day rest redistribution viability study. Indication coronary artery disease. 4.0 mCi of thallium 201 was injected at rest. Images were obtained and then a 48 viability study was then performed. Rest and redistribution images were compared with the above results noted. A large fixed defect is noted in the mid to distal anterior wall and apex. There is viability noted involving the lateral wall. There is viability noted involving a significant portion of the inferior wall. The basal anterior septal wall has a previous infarct with mild improvement suggesting some ischemia.
[2018-05-12] MEDS: Insulin Lispro 100 UNIT/ML INSULN.PEN 18 UNIT SC (07:50)
[2018-05-12] MEDS: Insulin Lispro 100 UNIT/ML INSULN.PEN SC ×3 (07:50→16:36)
--- NOTE | 2018-05-12 09:22 | PCM.PN.CARD ---
Subjectve: Patient doing very well this morning, sitting in a chair, no edema, no shortness of breath, slept very well. Telemetry showed normal sinus rhythm with rare PVCs and occasional paced atrial rhythm. Viability study done today demonstrates a large fixed anteroapical defect, lateral wall viability, inferior wall viability, and possible basal anteroseptal ischemia. Objective: Vital Signs Temp Pulse Resp BP Pulse Ox 97.9 F 64 16 119/70 94 05/12/18 04:15 05/12/18 07:39 05/12/18 07:39 05/12/18 06:56 05/12/18 08:53 Oxygen Flow Rate (L/min) 2 Oxygen Delivery Method Room Air Weight: 268 lb 11.896 oz Body Mass Index (BMI) 40.4 Orthostatic Vital Signs Start: 05/06/18 23:51 Freq: q24h Status: Active Protocol: Activity Type Activity Date Activity User E-Sign Co-Sign Detail Recorded Client Recorded Date Recorded By Document 05/12/18 06:56 NAIMA [id number] 05/12/18 07:04 NAIMA 05/12/18 06:56 Orthostatic Vitals Standing -Blood Pressure (90/60-120/80) 111/73 -Extremity Use Left Arm -Pulse Rate (60-100) 74 Sitting -Blood Pressure (90/60-120/80) 122/70 H -Extremity Use Left Arm -Pulse Rate (60-100) 67 Lying -Blood Pressure (90/60-120/80) 119/70 -Extremity Use Left Arm -Pulse Rate (60-100) 66 Intake and Output for Last 24 Hours 05/10/18 05/11/18 05/12/18 23:59 23:59 23:59 Intake Total 720 / 720 1090 / 1090 Output Total 450 / 450 Balance 720 / 720 640 / 640 General: Awake, Alert, Oriented x 3 HEENT: PERRL, EOMI, Sclera Non Icteric Neck: Supple, Good ROM, No Lymph Node Enlargement Lungs: Clear to auscultation Cardiovascular: Regular Rhythm, Normal S1, Normal S2, No Murmurs, No Rubs, No Gallops Vascular: No Carotid Bruits, Normal Femoral Pulses, Normal Radial Pulses, Normal Dorsalis Pedal Pulse, Normal Posterior Tibial Pulses Abdomen: Bowel Sounds Present, Soft, Non Tender, No HSM, No Organomegaly Extremities: No Cyanosis, No Clubbing, No edema Neurological: No Focal Motor or Sensory Deficit 05/12/18 05:55: Sodium 135 L, Potassium 4.1, Chloride 99, Carbon Dioxide 34.0 H, Anion Gap 2 L, BUN 29 H, Creatinine 1.42 H, Est GFR (MDRD) Af Amer 64, Est GFR (MDRD) Non-Af 53 L, BUN/Creatinine Ratio 20.4 H, Glucose 175 H, Calcium 8.3 L Rhythm: EKG: ECHO: Stress Test: Cardiac Cath: PCI: CT Surgery: Holter monitor: EPS: PPM: CXR: Chest CT Scan: Medical Necessity - Tobacco Use Smoking Status: Never smoker Tobacco Use: Non-smoker Assessment/Plan 1. Ischemic cardiomyopathy: The patient presents with a syncopal episode superimposed upon a recent GI illness, in the face of severe LV dysfunction and status post pacemaker/AICD. Interrogation of his pacemaker/AICD demonstrates no backup pacing took place, no ventricular arrhythmias, and no AICD discharges. Final result showed an episode of 4 beats of nonsustained ventricular tachycardia in December 2017 but nothing recently. His initial troponin is very minimally elevated, and do not believe this would discount him from having a stress test. Xarelto has been held since at least the day of admission and underwent a dobutamine echocardiogram which was abnormal for inferior ischemia superimposed on baseline anteroseptal severe hypokinesis. Patient underwent diagnostic coronary angiogram on 05/09/18 which demonstrated severe multivessel coronary disease. Specifically had an occluded LAD, an occluded left circumflex, nonobstructive disease of a moderate size ramus branch, I widely patent distal RCA stent, probably significant distal RCA stenosis Segway into the PDA and moderate calcification and proximal nonobstructive disease of his RCA. In addition his LV function appeared to be around 15%. Viability done over the weekend demonstrated a large fixed anteroapical defect, lateral wall viability consistent with his ramus intermedius vessel, inferior wall viability consistent with his patent but diseased right coronary artery and PDA, and possible basal anteroseptal ischemia. At this point the patient is very high risk for intervention of his right coronary artery given the totality of the disease, calcification, and his severe LV dysfunction. I would recommend that he be transferred to [facility] or an equivalent facility for evaluation however his brother suddenly yesterday in [place] from a brain aneurysm. I explained to the patient and his the possible risks and benefits of intervening on his right coronary artery versus medical therapy. I believe it is reasonable for the patient be discharged home to go to his brother's , provided he continues medical therapy. He had no evidence of V. fib arrest or ventricular tachycardia to explain his syncope, and may have been vasovagal or orthostatic in nature. In addition, we may want to consider upgrading his AICD/pacemaker to a BUDGET OFFICER device given his left bundle branch block and severe LV dysfunction. I would recommend concomitant consultation with Dr. Arteaga [facility] to see if is a candidate for BUDGET OFFICER upgrade. In the meantime I recommend continuing his Coreg 12.5 mg p.o. twice daily, breaking up his losartan into twice a day doses at 50 mg p.o. twice daily, hydralazine as ordered, continuing his Lasix as well as his spironolactone. His orthostatics have been negative thus far. We will make copies of the patient's cardiac catheterization, stress echo, echocardiogram, and viability study for referral to Dr. Wells and Dr. Arteaga. Would recommend restarting baby aspirin, Plavix 75 mg a day, and Xarelto. If the patient has any bleeding issues, this would preclude angioplasty going forward. At that point I would just recommend baby aspirin and Xarelto and medical therapy. In addition, would recommend changing Lasix to 40 mg twice daily, and adding Aldactone 25 mg p.o. daily to avoid congestive heart failure exacerbations. It does not appear that his syncope was a result of bradycardia and even if it was he has a backup pacemaker at 50 bpm. His heart has the ability to increase his heart rate with dobutamine stimulation, and he is not orthostatic on physical exam. No evidence of pacemaker requirements during his syncopal episode after interrogation of his pacemaker. 2. Hyperlipidemia: His LDL is 38 and HDL is 37. Continue statin based medicines. His LDL should be less than 70. 3. Thank you very much for the opportunity to participate in the cardiac care of your patient. Discussed with the patient, his , and all questions answered. Discussed with Dr. Rincon and agrees to discharge home today. The patient will follow-up with Dr. Wick going forward. Code Visit Inpatient E&M: 91930 Subs Hosp L2
[2018-05-12] MEDS: Furosemide 40 MG Tablet PO ×2 (09:39→16:38)
[2018-05-12] MEDS: Citalopram 20 MG Tablet PO (09:39)
[2018-05-12] MEDS: Losartan Potassium 50 MG Tablet PO (09:39)
[2018-05-12] MEDS: Spironolactone 25 MG Tablet PO (09:39)
[2018-05-12] MEDS: Carvedilol 12.5 MG Tablet PO (09:39)
[2018-05-12] MEDS: clonazePAM 1 MG Tablet 2 MG PO (09:47)
[2018-05-12] MEDS: Clopidogrel Bisulfate 75 MG Tablet PO (10:02)
--- NOTE | 2018-05-12 10:32 | CASEMGMT ---
This RN CM received message to call [facility] back regarding rollator script that was faxed on 05/09/18. Call to [facility] at this time and per Leodan, pt has a co-pay for rollator of $13.77 and they need pt to pay before they will deliver. Leodan states that they attempted to reach pt multiple times without success. This RN CM to room and notified pt/ regarding same and provided them with phone number to [facility] for payment so that rollator can be delivered, voice understanding at this time. Pt's asks about getting son's fmla paperwork completed and this RN CM referred her to have [facility]' or cardiologists office to fill out, voices understanding. Pt is asking about getting discharged. Cardiology had recommended transfer to [facility] for CABG per pt preference but pt's brother just and pt would like to be discharged for etc. Cardiology stated that pt could then f/u with cardiology at [facility] [place] after but pt states he is unsure if he even wants to the the surgery at this time and states, 'it's his choice.' Advised pt/ that Dr. Rincon would be down, voice understanding. Pt/ voice no further questions/concerns/needs at this time. S[place]en RN CM
[2018-05-12 11:25] LABS: Bedside Glucose 249 mg/dL (70-110)
[2018-05-12] MEDS: Acetaminophen 325 MG Tablet 650 MG PO (13:58)
--- NOTE | 2018-05-12 15:47 | DCINST_ITS ---
- Discharge Diagnoses Current Active Problems: Current Active and Chronic Problems (Last Updated 05/07/18 @ 10:24 by Josie Forrest) History of left heart catheterization (Chronic 05/09/18) Viability study to eval for possible CABG to PDA and LAD. If no anterior or inferior viablity will proceed with medical managent. Pt already has AICD. Restart Xarelto in 3 days for groin healing. ASA Indefinitely. Management as per referring Industrial Automation Engineer. (Per [facility] done by GIANNA @ [facility]). Chronic ulcer of left foot with fat layer exposed (Chronic) Type 2 diabetes mellitus with diabetic polyneuropathy (Acute) Delayed wound healing (Acute) Syncope and collapse (Acute) Wound of left foot (Chronic) ARAVIND (obstructive sleep apnea) (Chronic) CHF (congestive heart failure) (Chronic) Morbid obesity (Chronic) History of CVA (cerebrovascular accident) (Chronic) HTN (hypertension) (Chronic) HLD (hyperlipidemia) (Chronic) CAD (coronary artery disease) (Chronic) s/p PCI x 2, angioplasty x 1 Asthma (Chronic) Diabetes mellitus, type II (Chronic) CKD (chronic kidney disease) stage 3, GFR 30-59 ml/min (Chronic) You will use the following diet at home:: Cardiac, Fluid restricted (specify 2000 mls, 1500 mls) - 1500cc/day Your food should be the consistency of: Regular Your liquids should be the consistency of: Regular/Thin Discharge Activity: Return to Normal Activity, May Not Drive Return to work on:: 05/26/18 Call your doctor if you observe: Fever of 101 or Higher, Shortness of breath, Swelling in the ankles, Chest pain Allergies/Adverse Reactions: Allergies amoxicillin Allergy (Verified 05/06/18 21:32) Unknown Penicillins Allergy (Verified 05/06/18 18:50) Unknown Medications to take at Discharge Carvedilol 12.5 mg PO BID 05/06/18 Citalopram [Celexa] 20 mg PO DAILY 05/06/18 Clonazepam 2 mg PO BID 05/06/18 Collagenase [Santyl] 1 appful TOPICAL DAILY 05/06/18 Ergocalciferol [Vitamin D] 1 cap PO WE 05/06/18 Rivaroxaban [Xarelto] 20 mg PO DAILY 05/06/18 Simvastatin 20 mg PO DAILY 05/06/18 Acetaminophen [Tylenol Tablet] 500 mg PO Q6H PRN PRN tablet 05/12/18 Furosemide [Lasix] 40 mg PO BID@1000,1800 #60 tablet 05/12/18 Insulin Aspart [Novolog Flexpen] 8 units SQ TIDCM #1 05/12/18 Insulin Degludec [Tresiba Flextouch U-200] 20 unit SQ QHS #0 05/12/18 Losartan Potassium [Cozaar] 50 mg PO BID #60 tablet 05/12/18 Potassium Chloride [K-Dur] 10 meq PO DAILYCM #30 tablet 05/12/18 Spironolactone [Aldactone] 25 mg PO DAILY #30 tablet 05/12/18 The following prescriptions were given: Furosemide [Lasix] 40 mg PO BID@1000,1800 #60 tablet Potassium Chloride [K-Dur] 10 meq PO DAILYCM #30 tablet Spironolactone [Aldactone] 25 mg PO DAILY #30 tablet Losartan Potassium [Cozaar] 50 mg PO BID #60 tablet Primary Care Physician: Pancho Todd DO [STAFF PHYSICIAN] - Within 1 Week Test Results: Test results from this visit will be discussed in further detail at your follow- up appointment, if applicable. Please Follow Up With: Jordan Rizo MD When: 2-4 weeks Proposed Discharge Date: 05/12/18
--- NOTE | 2018-05-12 15:47 | PCM.DC.SUM ---
Discharge Date and Diagnosis - Problem List Patient Problems: Active and Suspected Problems (Last Updated 05/07/18 @ 10:24 by Josie Forrest) Syncope and collapse (Acute) Date of Admission: 05/06/18 Date of Discharge: 05/12/18 - Primary Discharge Diagnosis Active and Suspected Problems (Last Updated 05/07/18 @ 10:24 by Josie Forrest) Type 2 diabetes mellitus with diabetic polyneuropathy (Acute) Delayed wound healing (Acute) Syncope and collapse (Acute) - Secondary Discharge Diagnosis Chronic Problems (Last Updated 05/07/18 @ 10:24 by Josie Forrest) History of left heart catheterization (Chronic 05/09/18) Viability study to eval for possible CABG to PDA and LAD. If no anterior or inferior viablity will proceed with medical managent. Pt already has AICD. Restart Xarelto in 3 days for groin healing. ASA Indefinitely. 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 (Per [facility] done by GIANNA @ [facility]). Chronic ulcer of left foot with fat layer exposed (Chronic) Ischemic cardiomyopathy (Chronic) Implantable cardioverter-defibrillator (ICD) in situ (Chronic) Wound of left foot (Chronic) ARAVIND (obstructive sleep apnea) (Chronic) CHF (congestive heart failure) (Chronic) Morbid obesity (Chronic) History of CVA (cerebrovascular accident) (Chronic) HTN (hypertension) (Chronic) HLD (hyperlipidemia) (Chronic) CAD (coronary artery disease) (Chronic) s/p PCI x 2, angioplasty x 1 Asthma (Chronic) Diabetes mellitus, type II (Chronic) CKD (chronic kidney disease) stage 3, GFR 30-59 ml/min (Chronic) Hospital Course and Treatment Imaging Results: Clinical Impression(s) from Imaging Studies Chest X-Ray 05/06/18 18:00 IMPRESSION: 1. No airspace consolidation or pleural effusion. 2. Suspect chronic CHF. Electronically Signed: Denis Fox MD at 19:10 EDT , Service support , Foot X-Ray 05/06/18 21:50 IMPRESSION: 1. Apparent erosive arthropathy of the midfoot. This suggests sequela of an inflammatory process. 2. Calcaneal spurs. Electronically Signed: Audrey Nolan MD at 9:14 EDT , Service support , Chest X-Ray 05/07/18 05:55 IMPRESSION: Cardiomegaly. No acute infiltration is seen. Electronically Signed: Sami Saravia, at 15:49 EDT , Service support , Consultations 05/06/18 21:50 Consult: Onc/Wound/silverware assembler Routine Comment: MD [place]: cardiology. Operations: None Procedures: Cardiac catheterization Summary of Care Provided: The patient is a 67 year old M presents with syncope. Patient had orthostatics that were borderline. Patient underwent a left heart catheterization05/09 showed an occluded LAD, occluded left circumflex, nonobstructive disease of a moderate sized ramus branch. Widely patent distal RCA but probable significant distal RCA stenosis. Patient's LV function was a 15%. Is advised the patient go to [facility] for high risk of heart catheterization. However, patient's brother just unexpectedly and from Dr. Wick's recommendations the patient can go home and to follow-up with cardiology in the next couple weeks. Cardiology made recommendations continuing Coreg 12.5 mg twice daily, adding losartan to 50 mg twice daily, doing Lasix and spironolactone. Additionally starting aspirin and Plavix along with Xarelto. [] Patient Problems: Active and Suspected Problems (Last Updated 05/07/18 @ 10:24 by Josie Forrest) Syncope and collapse (Acute) - Physical Exam General: Alert, No apparent distress HEENT: Atraumatic, Normocephalic Oral: Moist Mucosa, No Gingival or Mucosal Lesions/ Ulcerations Neck: No Nodes, Thyroid Normal Size and Texture Lungs: Clear to auscultation, Normal air movement Cardiovascular: Regular rate, Regular Rhythm, Normal S1, Normal S2, No murmurs Abdomen: Bowel Sounds Present, Soft, Non Tender, Non-Distended Extremities: No Calf Tenderness, Edema Skin: No rashes, No breakdown Vital Signs Temp Pulse Resp BP Pulse Ox 37.0 C 70 16 91/53 L 94 05/12/18 10:23 05/12/18 14:30 05/12/18 13:13 05/12/18 10:23 05/12/18 14:00 Oxygen Flow Rate (L/min) 2 Oxygen Delivery Method Room Air Weight: 121.9 kg Body Mass Index (BMI) 40.4 Orthostatic Vital Signs Start: 05/06/18 23:51 Freq: q24h Status: Active Protocol: Activity Type Activity Date Activity User E-Sign Co-Sign Detail Recorded Client Recorded Date Recorded By Document 05/12/18 06:56 NAIMA [id number] 05/12/18 07:04 NAIMA 05/12/18 06:56 Orthostatic Vitals Standing -Blood Pressure (90/60-120/80) 111/73 -Extremity Use Left Arm -Pulse Rate (60-100) 74 Sitting -Blood Pressure (90/60-120/80) 122/70 H -Extremity Use Left Arm -Pulse Rate (60-100) 67 Lying -Blood Pressure (90/60-120/80) 119/70 -Extremity Use Left Arm -Pulse Rate (60-100) 66 Intake and Output for Last 24 Hours 05/10/18 05/11/18 05/12/18 23:59 23:59 23:59 Intake Total 720 / 720 1090 / 1090 360 / 360 Output Total 450 / 450 Balance 720 / 720 640 / 640 360 / 360 Laboratory Tests Past 24 Hrs 05/12/18 05:55 Sodium 135 L Potassium 4.1 Chloride 99 Carbon Dioxide 34.0 H Anion Gap 2 L BUN 29 H Creatinine 1.42 H Estim Creat Clear Calc 52.84 Est GFR (MDRD) Af Amer 64 Est GFR (MDRD) Non-Af 53 L BUN/Creatinine Ratio 20.4 H Glucose 175 H Calcium 8.3 L POC Glucose 05/12/18 05/12/18 05/11/18 11:12 06:59 22:07 POC Glucose 249 H 179 H 161 H 05/11/18 16:28 POC Glucose 149 H Discharge Activity: Return to Normal Activity, May Not Drive Return to work on:: 05/26/18 Call your doctor if you observe: Fever of 101 or Higher, Shortness of breath, Swelling in the ankles, Chest pain Home Medications: Medications to take at Discharge Carvedilol 12.5 mg PO BID 05/06/18 Citalopram [Celexa] 20 mg PO DAILY 05/06/18 Clonazepam 2 mg PO BID 05/06/18 Collagenase [Santyl] 1 appful TOPICAL DAILY 05/06/18 Ergocalciferol [Vitamin D] 1 cap PO WE 05/06/18 Rivaroxaban [Xarelto] 20 mg PO DAILY 05/06/18 Simvastatin 20 mg PO DAILY 05/06/18 Acetaminophen [Tylenol Tablet] 500 mg PO Q6H PRN PRN tablet 05/12/18 Aspirin 81 mg PO DAILY #1 tab.chew 05/12/18 Clopidogrel Bisulfate [Plavix] 75 mg PO DAILY #30 tablet 05/12/18 Furosemide [Lasix] 40 mg PO BID@1000,1800 #60 tablet 05/12/18 Insulin Aspart [Novolog Flexpen] 8 units SQ TIDCM #1 05/12/18 Insulin Degludec [Tresiba Flextouch U-200] 20 unit SQ QHS #0 05/12/18 Losartan Potassium [Cozaar] 50 mg PO BID #60 tablet 05/12/18 Potassium Chloride [K-Dur] 10 meq PO DAILYCM #30 tablet 05/12/18 Spironolactone [Aldactone] 25 mg PO DAILY #30 tablet 05/12/18 Following Prescrptions Were Given to Patient: Furosemide [Lasix] 40 mg PO BID@1000,1800 #60 tablet Potassium Chloride [K-Dur] 10 meq PO DAILYCM #30 tablet Spironolactone [Aldactone] 25 mg PO DAILY #30 tablet Losartan Potassium [Cozaar] 50 mg PO BID #60 tablet Primary Care Physician: Pancho Todd DO [STAFF PHYSICIAN] - Within 1 Week Please Follow Up With: [facility] cardiology When: 2-4 weeks Disposition: Home Minutes spent on discharge:: 40 Patient Condition:: Fair Medical Necessity - Tobacco Use Smoking Status: Never smoker Tobacco Use: Non-smoker Meaningful Use Info Meaningful Use Diagnoses (Choose all that apply): None applicable Code Visit Inpatient E&M: 28440 Disch Hosp
--- NOTE | 2018-05-12 15:57 | DS.PCM_ITS ---
Discharge Date and Diagnosis - Problem List Patient Problems: Active and Suspected Problems (Last Updated 05/07/18 @ 10:24 by Josie Forrest) Syncope and collapse (Acute) Date of Admission: 05/06/18 Date of Discharge: 05/12/18 - Primary Discharge Diagnosis Active and Suspected Problems (Last Updated 05/07/18 @ 10:24 by Josie Forrest) Type 2 diabetes mellitus with diabetic polyneuropathy (Acute) Delayed wound healing (Acute) Syncope and collapse (Acute) - Secondary Discharge Diagnosis Chronic Problems (Last Updated 05/07/18 @ 10:24 by Josie Forrest) History of left heart catheterization (Chronic 05/09/18) Viability study to eval for possible CABG to PDA and LAD. If no anterior or inferior viablity will proceed with medical managent. Pt already has AICD. Restart Xarelto in 3 days for groin healing. ASA Indefinitely. 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 (Per [facility] done by GIANNA @ [facility]). Chronic ulcer of left foot with fat layer exposed (Chronic) Ischemic cardiomyopathy (Chronic) Implantable cardioverter-defibrillator (ICD) in situ (Chronic) Wound of left foot (Chronic) ARAVIND (obstructive sleep apnea) (Chronic) CHF (congestive heart failure) (Chronic) Morbid obesity (Chronic) History of CVA (cerebrovascular accident) (Chronic) HTN (hypertension) (Chronic) HLD (hyperlipidemia) (Chronic) CAD (coronary artery disease) (Chronic) s/p PCI x 2, angioplasty x 1 Asthma (Chronic) Diabetes mellitus, type II (Chronic) CKD (chronic kidney disease) stage 3, GFR 30-59 ml/min (Chronic) Hospital Course and Treatment Imaging Results: Clinical Impression(s) from Imaging Studies Chest X-Ray 05/06/18 18:00 IMPRESSION: 1. No airspace consolidation or pleural effusion. 2. Suspect chronic CHF. Electronically Signed: Denis Fox MD at 19:10 EDT , Service support , Foot X-Ray 05/06/18 21:50 IMPRESSION: 1. Apparent erosive arthropathy of the midfoot. This suggests sequela of an inflammatory process. 2. Calcaneal spurs. Electronically Signed: Audrey Nolan MD at 9:14 EDT , Service support , Chest X-Ray 05/07/18 05:55 IMPRESSION: Cardiomegaly. No acute infiltration is seen. Electronically Signed: Sami Saravia, at 15:49 EDT , Service support , Consultations 05/06/18 21:50 Consult: Onc/Wound/workforce development specialist Routine Comment: MD [place]: cardiology. Operations: None Procedures: Cardiac catheterization Summary of Care Provided: The patient is a 67 year old M presents with syncope. Patient had orthostatics that were borderline. Patient underwent a left heart catheterization05/09 showed an occluded LAD, occluded left circumflex, nonobstructive disease of a moderate sized ramus branch. Widely patent distal RCA but probable significant distal RCA stenosis. Patient's LV function was a 15%. Is advised the patient go to [facility] for high risk of heart catheterization. However, patient's brother just unexpectedly and from Dr. Wick's recommendations the patient can go home and to follow-up with cardiology in the next couple weeks. Cardiology made recommendations continuing Coreg 12.5 mg twice daily, adding losartan to 50 mg twice daily, doing Lasix and spironolactone. Additionally starting aspirin and Plavix along with Xarelto. [] Patient Problems: Active and Suspected Problems (Last Updated 05/07/18 @ 10:24 by Josie Forrest) Syncope and collapse (Acute) - Physical Exam General: Alert, No apparent distress HEENT: Atraumatic, Normocephalic Oral: Moist Mucosa, No Gingival or Mucosal Lesions/ Ulcerations Neck: No Nodes, Thyroid Normal Size and Texture Lungs: Clear to auscultation, Normal air movement Cardiovascular: Regular rate, Regular Rhythm, Normal S1, Normal S2, No murmurs Abdomen: Bowel Sounds Present, Soft, Non Tender, Non-Distended Extremities: No Calf Tenderness, Edema Skin: No rashes, No breakdown Vital Signs Temp Pulse Resp BP Pulse Ox 37.0 C 70 16 91/53 L 94 05/12/18 10:23 05/12/18 14:30 05/12/18 13:13 05/12/18 10:23 05/12/18 14:00 Oxygen Flow Rate (L/min) 2 Oxygen Delivery Method Room Air Weight: 121.9 kg Body Mass Index (BMI) 40.4 Orthostatic Vital Signs Start: 05/06/18 23:51 Freq: q24h Status: Active Protocol: Activity Type Activity Date Activity User E-Sign Co-Sign Detail Recorded Client Recorded Date Recorded By Document 05/12/18 06:56 NAIMA [id number] 05/12/18 07:04 NAIMA 05/12/18 06:56 Orthostatic Vitals Standing -Blood Pressure (90/60-120/80) 111/73 -Extremity Use Left Arm -Pulse Rate (60-100) 74 Sitting -Blood Pressure (90/60-120/80) 122/70 H -Extremity Use Left Arm -Pulse Rate (60-100) 67 Lying -Blood Pressure (90/60-120/80) 119/70 -Extremity Use Left Arm -Pulse Rate (60-100) 66 Intake and Output for Last 24 Hours 05/10/18 05/11/18 05/12/18 23:59 23:59 23:59 Intake Total 720 / 720 1090 / 1090 360 / 360 Output Total 450 / 450 Balance 720 / 720 640 / 640 360 / 360 Laboratory Tests Past 24 Hrs 05/12/18 05:55 Sodium 135 L Potassium 4.1 Chloride 99 Carbon Dioxide 34.0 H Anion Gap 2 L BUN 29 H Creatinine 1.42 H Estim Creat Clear Calc 52.84 Est GFR (MDRD) Af Amer 64 Est GFR (MDRD) Non-Af 53 L BUN/Creatinine Ratio 20.4 H Glucose 175 H Calcium 8.3 L POC Glucose 05/12/18 05/12/18 05/11/18 11:12 06:59 22:07 POC Glucose 249 H 179 H 161 H 05/11/18 16:28 POC Glucose 149 H Discharge Activity: Return to Normal Activity, May Not Drive Return to work on:: 05/26/18 Call your doctor if you observe: Fever of 101 or Higher, Shortness of breath, Swelling in the ankles, Chest pain Home Medications: Medications to take at Discharge Carvedilol 12.5 mg PO BID 05/06/18 Citalopram [Celexa] 20 mg PO DAILY 05/06/18 Clonazepam 2 mg PO BID 05/06/18 Collagenase [Santyl] 1 appful TOPICAL DAILY 05/06/18 Ergocalciferol [Vitamin D] 1 cap PO WE 05/06/18 Rivaroxaban [Xarelto] 20 mg PO DAILY 05/06/18 Simvastatin 20 mg PO DAILY 05/06/18 Acetaminophen [Tylenol Tablet] 500 mg PO Q6H PRN PRN tablet 05/12/18 Aspirin 81 mg PO DAILY #1 tab.chew 05/12/18 Clopidogrel Bisulfate [Plavix] 75 mg PO DAILY #30 tablet 05/12/18 Furosemide [Lasix] 40 mg PO BID@1000,1800 #60 tablet 05/12/18 Insulin Aspart [Novolog Flexpen] 8 units SQ TIDCM #1 05/12/18 Insulin Degludec [Tresiba Flextouch U-200] 20 unit SQ QHS #0 05/12/18 Losartan Potassium [Cozaar] 50 mg PO BID #60 tablet 05/12/18 Potassium Chloride [K-Dur] 10 meq PO DAILYCM #30 tablet 05/12/18 Spironolactone [Aldactone] 25 mg PO DAILY #30 tablet 05/12/18 Following Prescrptions Were Given to Patient: Furosemide [Lasix] 40 mg PO BID@1000,1800 #60 tablet Potassium Chloride [K-Dur] 10 meq PO DAILYCM #30 tablet Spironolactone [Aldactone] 25 mg PO DAILY #30 tablet Losartan Potassium [Cozaar] 50 mg PO BID #60 tablet Primary Care Physician: Pancho Todd DO [STAFF PHYSICIAN] - Within 1 Week Please Follow Up With: [facility] cardiology When: 2-4 weeks Disposition: Home Minutes spent on discharge:: 40 Patient Condition:: Fair Medical Necessity - Tobacco Use Smoking Status: Never smoker Tobacco Use: Non-smoker Meaningful Use Info Meaningful Use Diagnoses (Choose all that apply): None applicable Code Visit Inpatient E&M: 87704 Disch Hosp
[2018-05-12] MEDS: Insulin Lispro 100 UNIT/ML INSULN.PEN 15 UNIT SC (16:36)
[2018-05-12] MEDS: Rivaroxaban 20 MG Tablet PO (16:37)
[2018-05-12 16:45] LABS: Bedside Glucose 179 mg/dL (70-110)
== END 2018-05-12 16:45 | disposition home or self-care (01) | DRG 264 ==
LOC: ED 19:31 → PCU 19:48
PROVIDERS: Internal Medicine; Internal Medicine Cardiovascular Disease; Admitting Provider Family Medicine; Emergency Provider Emergency Medicine; Family Provider Internal Medicine; PCP Internal Medicine; Referring Provider Family Medicine
DX: R55 Syncope and collapse (principal); I13.0 Hypertensive heart and chronic kidney disease with heart failure and stage 1 through stage 4 chronic kidney disease, or unspecified chronic kidney disease; I50.22 Chronic systolic (congestive) heart failure; Z68.41 Body mass index [BMI] 40.0-44.9, adult; E11.42 Type 2 diabetes mellitus with diabetic polyneuropathy; I25.10 Atherosclerotic heart disease of native coronary artery without angina pectoris; E66.01 Morbid (severe) obesity due to excess calories; E11.22 Type 2 diabetes mellitus with diabetic chronic kidney disease; N18.3 Chronic kidney disease, stage 3 (moderate); E78.5 Hyperlipidemia, unspecified; G47.33 Obstructive sleep apnea (adult) (pediatric); E11.65 Type 2 diabetes mellitus with hyperglycemia; D64.9 Anemia, unspecified; I25.5 Ischemic cardiomyopathy; I44.7 Left bundle-branch block, unspecified; J45.909 Unspecified asthma, uncomplicated; L97.522 Non-pressure chronic ulcer of other part of left foot with fat layer exposed; E11.621 Type 2 diabetes mellitus with foot ulcer; Z79.4 Long term (current) use of insulin; Z95.810 Presence of automatic (implantable) cardiac defibrillator; Z86.73 Personal history of transient ischemic attack (TIA), and cerebral infarction without residual deficits; Z95.5 Presence of coronary angioplasty implant and graft
CPT/HCPCS: 36415; 71045; 71046; 73630; 78451; 80048; 80053; 80061; 82962; 83036; 83735; 84100; 84484; 85025; 85610; 85730; 92526; 92610; 93005; 93017; 93306; 93350; 93458; 93880; 94640; 97110; 97116; 97162; 97165; 97530; 97802; 99285; A9505; J7030; J7040; Q9957; A4216; C1769; C1894; C8928; C8929; J2405; Q9967

== ENCOUNTER 2018-11-03 16:32 | Inpatient (IN) | payer MEDICARE, SELFPAY ==
[2018-05-06 21:26] VITALS: BMI 40.4
[2018-11-03] VITALS (9 sets, daily range): BP systolic 122–132; BP diastolic 65–77; PULSE 76–88; RESP 16–26; TEMP 36.7–38.5; O2SAT 87–100; BMI 44.9; BMI 38.9
--- NOTE | 2018-11-03 16:45 | EKG12_ITS ---
Test Reason : SOB Blood Pressure : / mmHG Vent. Rate : 087 BPM Atrial Rate : 072 BPM P-R Int : 000 ms QRS Dur : 094 ms QT Int : 386 ms P-R-T Axes : 000 -32 019 degrees QTc Int : 464 ms Atrial fibrillation with premature ventricular or aberrantly conducted complexes Left axis deviation Anterolateral infarct (cited on or before 03-NOV-2018) Abnormal ECG Confirmed by SIS HDYE, SCHUYLER ([id number]), editor producer GEETHA HENSLEY ([id number]) on 11/05/2018 12:54:07 PM Referred By: Jordan Jerez Confirmed By:SCHUYLER ALEGRE MD
--- NOTE | 2018-11-03 16:45 | RAD_ITS ---
STUDY: X-RAY CHEST REASON FOR EXAM: Male, 67 years old. Cough and shortness of breath TECHNIQUE: Single frontal view of the chest. COMPARISON: May 07, 2018 FINDINGS: Bipolar AICD. The lungs are clear and expanded. There is no demonstrated pleural abnormality. Mild cardiac megaly. Normal mediastinum and lakeisha. Normal visualized pulmonary arteries. Normal visualized aortic arch and descending thoracic aorta. Normal visualized thoracic spine. Normal visualized ribs, clavicles, and shoulders. There is no demonstrated abnormality of the visualized soft tissue structures of the upper abdomen. RAD/Chest 1 View (Portable) IMPRESSION: No acute disease Electronically Signed: Koffi William MD at 17:10 EDT , Service support ,
--- NOTE | 2018-11-03 16:49 | ED.VISSUMM ---
- ER Visit Summary Date of Service: 11/03/18 Chief Complaint: Shortness of breath History of Present Illness: The patient is a 67 M presenting with shortness of breath and cough. Patient states this started this morning. He has had chills. He was not aware that he had a fever. He has had nausea with no vomiting. He denies abdominal pain. He denies diarrhea, complains of mild constipation. Denies urinary complaints. Denies headache. Per EMS pulse ox was 84% on room air. He was given a DuoNeb and Solu-Medrol per EMS. Physical Examination: Vitals are stable. Temperature 101.3. Pulse ox 87% on 3 L. Alert no acute distress. HEENT exam is unremarkable. Neck is supple. Lungs are diminished bilaterally. Heart is regular rate and rhythm. Abdomen is soft nontender nondistended. Extremities are unremarkable. Skin is warm and dry. No rash No focal neurologic deficit. Remainder of exam is unremarkable. Emergency Department Course and Treatment: Patient was given IV fluids, Tylenol. CBC shows white count 18.7. Chemistries showed sodium 135, glucose 191. Troponin 0.036. Lactic acid 3.1. EKG is sinus rate of 87 with PACs. Chest x-ray shows left lower lobe infiltrate. Blood cultures were sent. Patient was given Levaquin IV. Patient remained hemodynamically stable. Discussed with the hospitalist for admission. Disposition: Admission Impression: Sepsis, pneumonia, hypoxia This note was generated with [employer] dictation software. It may contain incorrect words, spelling, and punctuation that were not noted in review of the chart prior to signing ED Disposition - Plan for ED Patient: Referrals: Rimma Vallejo MD [Primary Care Provider] -
[2018-11-03] MEDS: Acetaminophen 500 MG Tablet 1000 MG PO (16:59)
[2018-11-03 17:01] LABS: Absolute Lymphocyte Count 2.48 X10^3/uL (0.83-4.51); Absolute Neutrophil Count 14.6 X10^3/uL (2.0-7.7); Basophil# 0.07 X10^3/uL; Basophil% 0.4 % (0-1); Eosinophil# 0.17 X10^3/uL; Eosinophils% 0.9 % (0-5); Hematocrit 43.5 % (40-54); Hemoglobin 13.9 g/dL (13.0-16.5); Lymphocyte # 2.48 X10^3/ul (4.0); Lymphocyte % 13.3 % (19-41); Mean Corpuscular Hgb 28.5 pg (27.0-32.0); Mean Corpuscular Volume 89.3 fL (80-94); Mean Platelet Vol. 9.6 fl (6.2-12.0); Monocyte# 1.21 X10^3/uL; Monocyte% 6.5 % (0-10); NRBC Flagged by Analyzer 0 % (0-5); Neutrophil # 14.63 X10^3/uL (2.7-7.7); Neutrophil % 78.3 % (47-70); Platelet Count 259 K/mm3 (150-450); RBC Distribution Width CV 12.5 % (11.6-14.6); RBC Distribution Width SD 40.8 fl (35.1-43.9); Red Blood Count 4.87 M/mm3 (4.6-6.2); White Blood Count 18.7 K/mm3 (4.4-11.0)
[2018-11-03 17:20] LABS: Anion Gap 6 (5-15); BUN 16 mg/dL (7-18); BUN/Creat Ratio 12.5 RATIO (10-20); Calcium,Total 8.8 mg/dL (8.5-10.1); Chloride 97 mmol/L (98-107); Creatinine, Serum 1.28 mg/dL (0.70-1.30); EST Glomerular Filtration Rate 60 mL/min (>60); Est Glom Filt Rate - Afr Amer 72 mL/min (>60); Estimated Creatinine Clearance 51.23 ml/min; Glucose 191 mg/dL (74-106); Sodium Level 135 mmol/L (136-145)
[2018-11-03 17:27] LABS: Lactic Acid 3.1 mmol/L (0.4-2.0)
--- NOTE | 2018-11-03 17:28 | ED.RN ---
LAB CALL WITH CRITICAL LAB VALUE LACTIC ACID 3.1. VERBALLY REPORTED TO DR. HUBER AND YURIY RN.
[2018-11-03 18:19] LABS: Bacteria 0 SEEN /hpf (None Seen); Mucous, Urine 0 SEEN /hpf (<or=2+); Squamous Epithelial Cells - UA 0 SEEN /hpf (0-5)
[2018-11-03 18:24] LABS: Color, Urine Yellow (Yellow); Glucose, Dipstick 100 mg/dl (Normal); Ketone-Dipstick Negative (Negative); Leukocyte Esterase-Dipstick Negative /ul (Negative); Nitrite-Dipstick Negative (Negative); Occult Blood-Urine 50 /ul (Negative); Protein-Dipstick 100 mg/dl (Negative); Urine Bilirubin Dipstick Negative (Negative); Urine Clarity Sl. Cloudy (Clear); Urine Urobilinogen Normal (Normal)
[2018-11-03 18:36] LABS: Red Blood Cells-Urine 0-5 SEEN /hpf (0-5); White Blood Cells 0-5 SEEN /hpf (0-5)
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
[2018-11-03 20:56] LABS: Reflex Lactate? Y
[2018-11-03] MEDS: levoFLOXacin IV 750 MG/150 ML BAG 100 MG IV (21:01)
[2018-11-03 21:39] LABS: Lactic Acid 2.8 mmol/L (0.4-2.0)
[2018-11-03 21:46] LABS: Bedside Glucose 292 mg/dL (70-110)
--- NOTE | 2018-11-03 22:02 | NURSING ---
Spoke with Dr. Pedersen about Rocephin and Zithromax orders with allergy to amoxicillin and Penicillin, OK to give both medications.
--- NOTE | 2018-11-03 22:07 | NURSING ---
notified Dr. Jerez of lactic 2.8, no new orders at this time.
[2018-11-03] MEDS: Atorvastatin Calcium 10 MG Tablet PO (22:21)
[2018-11-03] MEDS: clonazePAM 1 MG Tablet PO (22:21)
[2018-11-03] MEDS: Carvedilol 12.5 MG Tablet PO (22:21)
[2018-11-03] MEDS: Rivaroxaban 20 MG Tablet PO (22:23)
[2018-11-03] MEDS: Insulin Lispro 100 UNIT/ML INSULN.PEN SC (22:26)
[2018-11-03] MEDS: Ceftriaxone 1 GM/50 ML BAG IV (22:26)
[2018-11-04 02:59] VITALS: BP 112/61; PULSE 70; RESP 20; TEMP 36.5; O2SAT 98
[2018-11-04 05:39] LABS: Absolute Lymphocyte Count 1.38 X10^3/uL (0.83-4.51); Absolute Neutrophil Count 11.3 X10^3/uL (2.0-7.7); Basophil# 0.02 X10^3/uL; Basophil% 0.2 % (0-1); Hematocrit 39.9 % (40-54); Hemoglobin 12.6 g/dL (13.0-16.5); Lymphocyte # 1.38 X10^3/ul (4.0); Lymphocyte % 10.6 % (19-41); Mean Corp Hgb Conc 31.6 g/dL (32-36); Mean Corpuscular Hgb 27.8 pg (27.0-32.0); Mean Corpuscular Volume 88.1 fL (80-94); Mean Platelet Vol. 9.9 fl (6.2-12.0); Monocyte# 0.25 X10^3/uL; Monocyte% 1.9 % (0-10); NRBC Flagged by Analyzer 0 % (0-5); Neutrophil # 11.29 X10^3/uL (2.7-7.7); Neutrophil % 86.8 % (47-70); Platelet Count 218 K/mm3 (150-450); RBC Distribution Width CV 12.7 % (11.6-14.6); RBC Distribution Width SD 41.1 fl (35.1-43.9); Red Blood Count 4.53 M/mm3 (4.6-6.2)
[2018-11-04 06:06] LABS: Anion Gap 7 (5-15); BUN 19 mg/dL (7-18); BUN/Creat Ratio 14.7 RATIO (10-20); Calcium,Total 8.4 mg/dL (8.5-10.1); Chloride 100 mmol/L (98-107); Creatinine, Serum 1.29 mg/dL (0.70-1.30); EST Glomerular Filtration Rate 59 mL/min (>60); Est Glom Filt Rate - Afr Amer 72 mL/min (>60); Estimated Creatinine Clearance 58.16 ml/min; Glucose 310 mg/dL (74-106); Potassium 4.6 mmol/L (3.5-5.1); Sodium Level 137 mmol/L (136-145)
[2018-11-04 07:23] VITALS: O2SAT 96
[2018-11-04] MEDS: metFORMIN (XR) 500 MG Tablet PO (07:36)
[2018-11-04] MEDS: Insulin Lispro 100 UNIT/ML INSULN.PEN 20 UNIT SC ×2 (07:37→17:02)
[2018-11-04] MEDS: Insulin Lispro 100 UNIT/ML INSULN.PEN SC ×4 (07:38→22:10)
[2018-11-04 07:50] LABS: Bedside Glucose 301 mg/dL (70-110)
[2018-11-04 09:11] VITALS: BP 120/66; PULSE 77; RESP 20; TEMP 37.3; O2SAT 99
[2018-11-04] MEDS: Carvedilol 12.5 MG Tablet PO ×2 (09:26→22:09)
[2018-11-04] MEDS: Citalopram 20 MG Tablet PO (09:26)
[2018-11-04] MEDS: Clopidogrel Bisulfate 75 MG Tablet PO (09:26)
[2018-11-04] MEDS: Losartan Potassium 100 MG Tablet PO (09:26)
[2018-11-04] MEDS: clonazePAM 1 MG Tablet PO ×2 (09:27→22:09)
--- NOTE | 2018-11-04 11:00 | CASEMGMT ---
Addendum entered by Ranjeet Hendricks 11/04/18 15:14: Call received from Bree Moe CM for Dr Vallejo. Discussed pt and 's concerns with cost of medications, especially with cost of Tresiba. Bree was made aware states they have enough medication for now, but concern is when they get refills. Bree states she will look into it. Original Note: RN CM CONSTRUCTION CARPENTERS HELPER CM to room to meet with patient for initial transition planning/care coordination assessment. FRANCIS YANEZ introduced self and role at [facility]. Pt voices understanding and consents to assessment at this time. Pt resting in bed in no distress at this time. Pt is A/O at this time and answers all questions appropriately. at bedside and provided information as well. Care providers, pharmacy, and demographics verified/updated at this time. PCP: Dr Vallejo Specialists: Dr Varghese--purchasing engineer at [facility] Preferred Pharmacy: [facility] Insurance: [employer] Prescription Benefit: Yes. and pt voice concern over cost of medication they have been having to pay, stating the cost is around $400-$500/month. states they have been working with a SW @ Dr Vallejo's office re: this. Advised pt and to discuss high cost and concerns with Dr Vallejo and that other more affordable options for medication may be available. They voice understanding. FRANCIS YANEZ called Bree Moe CM for Dr Vallejo and message left on her VM re: pt and 's concerns over cost of his home medications. Living Will/HPOA: does not have LW or HCPOA . Pt and interested in more information and would like to talk with ESTELA. Poppy PALMER, made aware. Pt and given AD information. Consult order for ESTELA placed. LNOK: . 4 living adult children. Living Arrangements: Lives with his in mobile home. 5 steps w/rails to enter. Transportation: DME: has the following DME: Tub bench/shower chair, raised toilet seat, cane, lift chair, hand held shower, rollator, glucometer-- has all the needed supplies and that it is working properly. states pt used to have a BIPAP but that it disappeared when we moved about a year ago and we can't find it now'. States she plans on talking with Dr Vallejo about getting a new one. made aware pt will most likely need a new sleep study completed. She voices understanding. Pt states no need for further DME at this time. HHC/SNF: No history of SNF. Has used [facility] in the past. Pt wishes to return home and pt and agreeable to HHC. Given list of local HHC agencies. 1st preference is [facility]. CM to follow for home oxygen needs and any further discharge planning/needs. Pt and voice no further concerns/needs at this time. Advised them to ask for CM if any further questions/concerns/needs arise. They voice understanding. PLAN: Home w/HHC. Jojo PEÑA RN CM
[2018-11-04 12:20] LABS: Bedside Glucose 305 mg/dL (70-110)
--- NOTE | 2018-11-04 12:23 | CASEMGMT ---
RN CM NOTE: Call placed to Mirela @ [facility] and referral made. Jojo PEÑA RN CM
--- NOTE | 2018-11-04 13:12 | CASEMGMT ---
Social Work Note SW received referral for advanced directives. SW met with pt and pt soundly sleeping. Pt's present in room states pt just got to sleep. SW provided pt's with advanced directives documents and informed pt's that this worker will follow up with pt tomorrow to complete documents. Pt's states understanding. SW to follow up with pt tomorrow to complete advanced directives. Poppy Rodgers CASTING MACHINE CONTROL BOARD OPERATOR, JAIL GUARD
--- NOTE | 2018-11-04 13:19 | PN_ITS ---
Patient Problems: Active and Suspected Problems (Last Updated 05/07/18 @ 10:24 by Josie Forrest) Shortness of breath (Acute) Subjective: Patient denies any chronic lung disease or COPD/emphysema or history of his smoking. He said he has history of pneumonia in January 2018. This time, is admitted with cough with thick mucoid sputum along with shortness of breath for about 2 days. Patient was found hypoxic 84% on room air. He had dyspnea on mild exertion. Chest x-ray reviewed and does not show any focal infiltrate or consolidation. Vitals/I&O's: Vital Signs Temp Pulse Resp BP Pulse Ox 99.2 F H 77 20 H 120/66 99 11/04/18 09:11 11/04/18 09:11 11/04/18 09:11 11/04/18 09:11 11/04/18 09:11 Oxygen Flow Rate (L/min) 1 Oxygen Delivery Method Room Air Weight: 271 lb 6.224 oz Body Mass Index (BMI) 38.9 Intake and Output for Last 24 Hours 11/02/18 11/03/18 11/04/18 23:59 23:59 23:59 Intake Total 1193.33 / 1443.33 805 / 805 Balance 1193.33 / 1443.33 805 / 805 General: Alert, Oriented x3, Cooperative HEENT: Atraumatic, PERRLA, EOMI, Normocephalic Neck: Supple, No JVD, Negative Carotid Bruits Lungs: Diminished - Air entry diminished bilaterally more on bilateral lung bases., Rhonchi, Short of Breath, Wheezes, - Cardiovascular: Regular rate, Regular Rhythm, Normal S1, Normal S2, No murmurs, - - Left subclavicular AICD present Abdomen: Bowel Sounds Present, Soft, Non Tender Extremities: No edema, Capillary Refill Less than 3 Seconds Skin: No rashes, No breakdown Musculoskeletal: No Tenderness to Palpation of Joints or Extremities, Arthritic Changes Neurological: Cranial nerves II-XII grossly intact Psych/Mental Status: Normal Affect, Appropriate Laboratory Results 11/03/18 16:47: WBC 18.7 H, RBC 4.87, Hgb 13.9, Hct 43.5, MCV 89.3, MCH 28.5, MCHC 32.0, RDW Std Deviation 40.8, RDW Coeff of Juan 12.5, Plt Count 259, MPV 9.6, Immature Gran % (Auto) 0.600, Neut % (Auto) 78.3 H, Lymph % (Auto) 13.3 L, [place] % (Auto) 6.5, Eos % (Auto) 0.9, Baso % (Auto) 0.4, Absolute Neuts (auto) 14.6 H, Absolute Lymphs (auto) 2.48, Nucleated RBC % 0 11/03/18 16:47: Sodium 135 L, Potassium 4.0, Chloride 97 L, Carbon Dioxide 32.0, Anion Gap 6, BUN 16, Creatinine 1.28, Estim Creat Clear Calc 51.23, Est GFR (MDRD) Af Amer 72, Est GFR (MDRD) Non-Af 60, BUN/Creatinine Ratio 12.5, Glucose 191 H, Calcium 8.8, Troponin I 0.036 11/03/18 16:47: Lactic Acid 3.1 H 11/03/18 18:10: Urine Color Yellow, Urine Clarity Sl. Cloudy, Urine pH 5.0, Ur Specific [place] 1.020, Urine Protein 100 H, Urine Glucose (UA) 100 H, Urine Ketones Negative, Urine Occult Blood 50 H, Urine Nitrite Negative, Urine Bilirubin Negative, Urine Urobilinogen Normal, Ur Leukocyte Esterase Negative, Urine RBC 0-5 SEEN, Urine WBC 0-5 SEEN, Ur Squamous Epith Cells 0 SEEN, Urine Bacteria 0 SEEN, Urine Mucus 0 SEEN 11/03/18 21:10: Lactic Acid 2.8 H 11/03/18 21:37: POC Glucose 292 H 11/04/18 05:28: WBC 13.0 H, RBC 4.53 L, Hgb 12.6 L, Hct 39.9 L, MCV 88.1, MCH 27.8, MCHC 31.6 L, RDW Std Deviation 41.1, RDW Coeff of Juan 12.7, Plt Count 218, MPV 9.9, Immature Gran % (Auto) 0.500, Neut % (Auto) 86.8 H, Lymph % (Auto) 10.6 L, [place] % (Auto) 1.9, Eos % (Auto) 0.0, Baso % (Auto) 0.2, Absolute Neuts (auto) 11.3 H, Absolute Lymphs (auto) 1.38, Nucleated RBC % 0 11/04/18 05:28: Sodium 137, Potassium 4.6, Chloride 100, Carbon Dioxide 30.0, Anion Gap 7, BUN 19 H, Creatinine 1.29, Estim Creat Clear Calc 58.16, Est GFR (MDRD) Af Amer 72, Est GFR (MDRD) Non-Af 59 L, BUN/Creatinine Ratio 14.7, Glucose 310 H, Calcium 8.4 L 11/04/18 07:34: POC Glucose 301 H 11/04/18 11:59: POC Glucose 305 H Current Medications Acetaminophen (Tylenol) 500 mg PO Q6H PRN PRN PRN Reason: Non-cardiac pain (mod-severe) Atorvastatin Calcium (Lipitor) 10 mg PO QHS [facility] Last Admin: 11/03/18 22:21 Dose: 10 mg Documented by: Carvedilol (Coreg) 12.5 mg PO BID [facility] Last Admin: 11/04/18 09:26 Dose: 12.5 mg Documented by: Citalopram Hydrobromide (Celexa) 20 mg PO DAILY [facility] Last Admin: 11/04/18 09:26 Dose: 20 mg Documented by: Clonazepam (Klonopin) 1 mg PO BID [facility] Last Admin: 11/04/18 09:27 Dose: 1 mg Documented by: Clopidogrel Bisulfate (Plavix) 75 mg PO DAILY [facility] Last Admin: 11/04/18 09:26 Dose: 75 mg Documented by: Dextrose (D50w Syringe) 0 gm IV X1 PRN; Protocol PRN Reason: Hypoglycemia Ergocalciferol (Vitamin D) 50,000 unit PO [facility] Glucagon () 1 mg IM .X1 PRN PRN Reason: Hypoglycemia Ceftriaxone Sodium (Rocephin) 1 gm in 50 mls @ 100 mls/hr IV Q24@2200 [facility] Last Infusion: 11/03/18 22:56 Dose: Infused Documented by: Azithromycin 500 mg/ Dextrose 255 mls @ 250 mls/hr IV Q24@2200 [facility] Stop: 11/05/18 23:02 Last Infusion: 11/04/18 00:11 Dose: Infused Documented by: Insulin Glargine (Lantus (Bk)) 36 units SC QHS [facility] Last Admin: 11/03/18 22:24 Dose: 36 u Documented by: Insulin Human Lispro (Humalog Kwikpen ([facility] Last Admin: 11/04/18 07:37 Dose: 20 units Documented by: Insulin Human Lispro (Humalog Kwikpen (Bkc)) 0 unit SC ACHS [facility]; Protocol Last Admin: 11/04/18 12:01 Dose: 4 u Documented by: Losartan Potassium (Cozaar) 100 mg PO DAILY [facility] Last Admin: 11/04/18 09:26 Dose: 100 mg Documented by: Metformin HCl ([facility]ophage Xr) [facility] Last Admin: 11/04/18 07:36 Dose: 500 mg Documented by: Rivaroxaban (Xarelto) 20 mg PO DAILY@2200 [facility] Last Admin: 11/03/18 22:23 Dose: 20 mg Documented by: Sodium Chloride () 10 - 40 ml IV UD PRN PRN Reason: SALINE FLUSH Medical Necessity - Tobacco Use Smoking Status: Never smoker Assessment/Plan All Active Problems (Last Updated 05/07/18 @ 10:24 by Josie Forrest) Shortness of breath (Acute) Syncope and collapse (Acute) This 67-year-old gentleman with history of previous pneumonia in January 2018 admitted with productive cough, progressively worsening shortness of breath on mild exertion and then at rest for about 4 days, hypoxia 84% on room air and tachypnea. 1. Severe sepsis with Acute hypoxic respiratory failure possible from clinical community-acquired pneumonia or acute bronchitis: [facility]. Patient has hypoxia, leukocytosis and elevated lactic acid 3.1. Started on IV antibiotics Rocephin and Zithromax. Urinary antigens and respiratory panel are ordered. Blood cultures are pending. Chest x-ray does not show any focal significant infiltrate or consolidation. 2. Burning micturition, one-time on 11/03/2018: UA is negative for pyuria. LE and nitrite negative. UTI ruled out. Although does not make a difference patient is already on antibiotics. 3. Triple-vessel coronary artery disease coronary artery disease status post stents and chronic systolic heart failure status post AICD: Patient had cardiac cath in April 2018 and reported as triple-vessel coronary artery disease of LAD, circumflex and RCA. Severe global LV systolic dysfunction, EF 15% by LV gram. At that time it was recommended viability study to evaluate for possible CABG to PDA and LAD 28 inferior wall. In May 22, 2018 when he was admitted for syncope, stress test was done which shows large fixed anteroapical defect with lateral wall viable consistent with his ramus intermedius vessel, inferior wall viable extremities patent but diseased RCA and PDA. At that time was recommended for bypass surgery but before that his brother and seems lost to the follow-up. 4. Diabetes mellitus type II: Accu-Cheks are elevated in the range of 300. Insulin titrated accordingly. 5 other comorbidities include hypertension, dyslipidemia and obstructive sleep apnea: It seems patient is noncompliant to CPAP. 6. DVT prophylaxis?low molecular weight heparin Clinical Impression(s) from Imaging Studies Chest X-Ray 11/03/18 16:45 IMPRESSION: No acute disease Code Visit Inpatient E&M: 98561 Subs Hosp L3
[2018-11-04 15:15] VITALS: BP 126/68; PULSE 72; RESP 18; TEMP 37.1; O2SAT 95
[2018-11-04 17:16] LABS: Bedside Glucose 358 mg/dL (70-110)
[2018-11-04 21:39] VITALS: BP 123/69; PULSE 80; RESP 18; TEMP 37.3; O2SAT 96
[2018-11-04] MEDS: Rivaroxaban 20 MG Tablet PO (22:09)
[2018-11-04] MEDS: Atorvastatin Calcium 10 MG Tablet PO (22:09)
[2018-11-04 22:21] LABS: Bedside Glucose 281 mg/dL (70-110)
[2018-11-05 02:21] VITALS: BP 123/78; PULSE 67; RESP 18; TEMP 36.8; O2SAT 94
--- NOTE | 2018-11-05 05:55 | RAD_ITS ---
STUDY: X-RAY CHEST REASON FOR EXAM: Male, 67 years old. Chest pain. TECHNIQUE: PA and lateral views of the chest. COMPARISON: Comparison is made with prior study dated November 03, 2018. FINDINGS: Mild degree of increased markings at the left lung base suggestive of her left basilar atelectasis. There is no demonstrated pleural abnormality. There is borderline cardiomegaly. A left-sided dual-chamber pacemaker is seen. Normal mediastinum and lakeisha. Normal visualized pulmonary arteries. There is atherosclerotic calcification of the aortic arch with tortuosity. There are diffuse degenerative changes of the visualized thoracic spine. There is deformity of the left scapula most likely secondary to prior trauma. Clinical correlation is recommended. There is no demonstrated abnormality of the visualized soft tissue structures of the upper abdomen. RAD/Chest PA and Lateral IMPRESSION: Mild degree of increased markings at the left lung base suggestive of atelectasis. Electronically Signed: Sami Saravia, at 9:22 EDT , Service support ,
[2018-11-05 07:55] VITALS: BP 115/98; PULSE 68; RESP 18; TEMP 36.2; O2SAT 98
[2018-11-05] MEDS: metFORMIN (XR) 500 MG Tablet PO (07:59)
[2018-11-05] MEDS: Insulin Lispro 100 UNIT/ML INSULN.PEN 20 UNIT SC (08:00)
[2018-11-05] MEDS: Insulin Lispro 100 UNIT/ML INSULN.PEN SC ×2 (08:00→12:14)
[2018-11-05] MEDS: Carvedilol 12.5 MG Tablet PO (08:01)
[2018-11-05] MEDS: Citalopram 20 MG Tablet PO (08:01)
[2018-11-05] MEDS: Clopidogrel Bisulfate 75 MG Tablet PO (08:01)
[2018-11-05] MEDS: Losartan Potassium 100 MG Tablet PO (08:01)
[2018-11-05] MEDS: clonazePAM 1 MG Tablet PO (08:05)
[2018-11-05 08:15] LABS: Bedside Glucose 248 mg/dL (70-110)
[2018-11-05 08:57] LABS: Absolute Lymphocyte Count 3.41 X10^3/uL (0.83-4.51); Absolute Neutrophil Count 10.3 X10^3/uL (2.0-7.7); Basophil# 0.03 X10^3/uL; Basophil% 0.2 % (0-1); Eosinophil# 0.05 X10^3/uL; Eosinophils% 0.3 % (0-5); Hematocrit 40.8 % (40-54); Hemoglobin 12.9 g/dL (13.0-16.5); Lymphocyte # 3.41 X10^3/ul (4.0); Lymphocyte % 23.2 % (19-41); Mean Corp Hgb Conc 31.6 g/dL (32-36); Mean Corpuscular Hgb 28.6 pg (27.0-32.0); Mean Corpuscular Volume 90.5 fL (80-94); Mean Platelet Vol. 9.6 fl (6.2-12.0); Monocyte# 0.83 X10^3/uL; Monocyte% 5.6 % (0-10); NRBC Flagged by Analyzer 0 % (0-5); Neutrophil # 10.32 X10^3/uL (2.7-7.7); Neutrophil % 70.2 % (47-70); Platelet Count 252 K/mm3 (150-450); RBC Distribution Width CV 12.8 % (11.6-14.6); RBC Distribution Width SD 41.9 fl (35.1-43.9); Red Blood Count 4.51 M/mm3 (4.6-6.2); White Blood Count 14.7 K/mm3 (4.4-11.0)
--- NOTE | 2018-11-05 09:37 | DCINST_ITS ---
- Discharge Diagnoses Current Active Problems: Current Active and Chronic Problems (Last Updated 05/07/18 @ 10:24 by Josie Forrest) Shortness of breath (Acute) You will use the following diet at home:: Calorie/Carbohydrate Controlled (specify 1200, 1400, etc) - 1600 ADA diet, Cardiac Your liquids should be the consistency of: Regular/Thin Discharge Activity: Return to Normal Activity Call your doctor if you observe: Fever of 101 or Higher, Inability to urinate, Inability to have a bowel movement, Shortness of breath, Dizziness, Fainting spells, Swelling in the ankles, Chest pain, Increased palpitations (irregular heartbeat), Calf discomfort, Uncontrolled pain Allergies/Adverse Reactions: Allergies amoxicillin Allergy (Verified 11/03/18 16:33) Unknown Penicillins Allergy (Verified 11/03/18 16:33) Unknown Medications to take at Discharge Carvedilol 12.5 mg PO BID 05/06/18 Citalopram [Celexa] 20 mg PO DAILY 05/06/18 Ergocalciferol [Vitamin D] 1 cap PO WE 05/06/18 Rivaroxaban [Xarelto] 20 mg PO DAILY 05/06/18 Simvastatin 20 mg PO QHS 05/06/18 Acetaminophen [Tylenol Tablet] 500 mg PO Q6H PRN PRN tablet 05/12/18 Clopidogrel Bisulfate [Plavix] 75 mg PO DAILY #30 tablet 05/12/18 Clonazepam 1 mg PO BID 11/03/18 Telmisartan 80 mg PO DAILY 11/03/18 metFORMIN HCl [Glucophage] 500 mg PO DAILY 11/03/18 Guaifenesin [Mucinex] 1,200 mg PO BID #14 tab.er.12h 11/05/18 Insulin Aspart [Novolog Flexpen] 25 units SQ BIDCM #0 11/05/18 Insulin Degludec [Tresiba Flextouch U-200] 40 unit SQ QHS #0 11/05/18 Insulin Lispro [Humalog KwikPen] See Protocol SC ACHS insuln.pen 11/05/18 The following prescriptions were given: Guaifenesin [Mucinex] 1,200 mg PO BID #14 tab.er.12h Transmission Status: Pending to [id number] Primary Care Physician: Rimma Vallejo MD [Primary Care Provider] - Please follow up with your Primary Care Physician in: in 2 weeks Test Results: Test results from this visit will be discussed in further detail at your follow- up appointment, if applicable. Please Follow Up With: Gulshan Wick MD When: in 2 weeks to refer for CABG
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
--- NOTE | 2018-11-05 10:38 | CASEMGMT ---
Social Work Note Pt is being discharged today. SW met with pt and pt's . Pt soundly sleeping. Pt's states that she just plans on taking pt and documents to an assistant attorney general to complete. Poppy Rodgers TALENT ACQUISITION SOURCER, BOX LINER
[2018-11-05 11:00] VITALS: RESP 18
[2018-11-05 11:23] VITALS: O2SAT 95
[2018-11-05 11:36] LABS: Bedside Glucose 58 mg/dL (70-110)
[2018-11-05 12:15] LABS: Bedside Glucose 300 mg/dL (70-110)
[2018-11-05 12:55] VITALS: BP 115/98; PULSE 68; RESP 18; TEMP 36.2; O2SAT 98
--- NOTE | 2018-11-06 15:06 | CASEMGMT ---
Case Management DC F/u Call: DC Date: 11/05/18 DC Diagnosis: Shortness of breath (Acute) DC Disposition: Home with [facility] LACE/STRATA: 12/28 Called patient listed number in demographics, no answer, VM verified patient however mailbox is full and unable to leave a VM. Kiersten Alanis RNCM
== END 2018-11-05 13:00 | disposition home or self-care (01) | DRG 871 ==
LOC: ED 17:03 → MS3 21:12
PROVIDERS: Admitting Provider Family Medicine; Emergency Provider Emergency Medicine; Family Provider Internal Medicine; PCP Internal Medicine; Referring Provider Family Medicine; Visit Provider Internal Medicine
DX: A41.89 Other specified sepsis (principal); J96.01 Acute respiratory failure with hypoxia; I50.22 Chronic systolic (congestive) heart failure; I13.0 Hypertensive heart and chronic kidney disease with heart failure and stage 1 through stage 4 chronic kidney disease, or unspecified chronic kidney disease; R65.20 Severe sepsis without septic shock; J20.6 Acute bronchitis due to rhinovirus; E11.42 Type 2 diabetes mellitus with diabetic polyneuropathy; E66.01 Morbid (severe) obesity due to excess calories; I25.10 Atherosclerotic heart disease of native coronary artery without angina pectoris; Z68.38 Body mass index [BMI] 38.0-38.9, adult; G47.33 Obstructive sleep apnea (adult) (pediatric); I25.5 Ischemic cardiomyopathy; Z86.73 Personal history of transient ischemic attack (TIA), and cerebral infarction without residual deficits; Z95.810 Presence of automatic (implantable) cardiac defibrillator; N18.3 Chronic kidney disease, stage 3 (moderate); E11.22 Type 2 diabetes mellitus with diabetic chronic kidney disease; E78.5 Hyperlipidemia, unspecified; J45.909 Unspecified asthma, uncomplicated; Z95.5 Presence of coronary angioplasty implant and graft; Z79.4 Long term (current) use of insulin
CPT/HCPCS: 36415; 71045; 71046; 80048; 81001; 82962; 83605; 84484; 85025; 87040; 87449; 87633; 93005; 97162; 97166; 99285; J7040; J7050; A4216

== ENCOUNTER 2019-01-15 13:57 | Emergency (ER) | payer MEDICARE, SELFPAY ==
[2018-11-03 21:21] VITALS: BMI 38.9
[2019-01-15] VITALS (7 sets, daily range): BP systolic 120–159; BP diastolic 70–81; PULSE 69–89; RESP 16–20; TEMP 36.5–36.7; O2SAT 92–95; BMI 37.6
--- NOTE | 2019-01-15 14:14 | EKG12_ITS ---
Test Reason : Blood Pressure : / mmHG Vent. Rate : 072 BPM Atrial Rate : 072 BPM P-R Int : 206 ms QRS Dur : 112 ms QT Int : 468 ms P-R-T Axes : 049 -45 043 degrees QTc Int : 512 ms Normal sinus rhythm with sinus arrhythmia Left axis deviation Anterolateral infarct (cited on or before 03-NOV-2018) Prolonged QT Abnormal ECG Confirmed by CHELLY HYDE, PATIENCE ([id number]), purchase request editor GEETHA HENSLEY ([id number]) on 01/19/2019 9:24:38 AM Referred By: FAITH Confirmed By:ALISA SPAULDING MD
[2019-01-15 14:22] LABS: Absolute Lymphocyte Count 2.32 X10^3/uL (0.83-4.51); Absolute Neutrophil Count 4.7 X10^3/uL (2.0-7.7); Basophil# 0.05 X10^3/uL; Basophil% 0.6 % (0-1); Eosinophil# 0.23 X10^3/uL; Eosinophils% 2.9 % (0-5); Hematocrit 41.6 % (40-54); Hemoglobin 12.9 g/dL (13.0-16.5); Lymphocyte # 2.32 X10^3/ul (4.0); Mean Corpuscular Hgb 28.3 pg (27.0-32.0); Mean Corpuscular Volume 91.2 fL (80-94); Mean Platelet Vol. 9.5 fl (6.2-12.0); Monocyte# 0.65 X10^3/uL; Monocyte% 8.1 % (0-10); NRBC Flagged by Analyzer 0 % (0-5); Neutrophil # 4.73 X10^3/uL (2.7-7.7); Platelet Count 242 K/mm3 (150-450); RBC Distribution Width CV 13.3 % (11.6-14.6); RBC Distribution Width SD 43.9 fl (35.1-43.9); Red Blood Count 4.56 M/mm3 (4.6-6.2)
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
[2019-01-15 14:39] LABS: Anion Gap 4 (5-15); BUN 19 mg/dL (7-18); Calcium,Total 8.9 mg/dL (8.5-10.1); Chloride 103 mmol/L (98-107); Creatinine, Serum 1.12 mg/dL (0.70-1.30); EST Glomerular Filtration Rate 70 mL/min (>60); Est Glom Filt Rate - Afr Amer 84 mL/min (>60); Estimated Creatinine Clearance 68.17 ml/min; Glucose 87 mg/dL (74-106); Sodium Level 139 mmol/L (136-145)
--- NOTE | 2019-01-15 15:04 | ED.DCSUM_ITS ---
- ER Visit Summary Date of Service: 01/15/19 Chief Complaint: I think I have pneumonia History of Present Illness: The patient is a 68 M who presents with shortness of breath for a week. He had similar symptoms in the past with pneumonia. He reports a cough but denies sputum. He reports subjective fevers and chills. He also has cold sweats. He has a history of asthma but is not currently on breathing treatments, steroids, or antibiotics. He also has a history of heart disease but is not having chest pain. He does take Xarelto, and is compliant. Denies any history of DVT or PE. Physical Examination: Afebrile and vital signs unremarkable. Patient alert and oriented. No acute distress. HEENT exam unremarkable. Heart regular. Lungs show mild expiratory wheeze diffusely. Abdomen soft and nontender. Extremities nontender. Skin appears normal. Test Results: EKG shows sinus rhythm at a rate of 72. No sign of acute ischemia or infarction pattern. Nonspecific chronic changes and prolonged QTC as noted. Hemoglobin 12.9. BUN 19, troponin normal. Chest x-ray normal except for borderline cardiomegaly. Emergency Department Course and Treatment: Patient was treated with breathing treatments. I suspect he has bronchitis. Given the duration of his symptoms, will treat with azithromycin. Follow-up with primary care. There is no indication for further testing, hospitalization, or emergent care. He will return with any new or worsening issues. Treatment Plan: As above Disposition: Discharge Impression: 1. Acute bronchitis This note was generated with [employer] dictation software. It may contain incorrect words, spelling, and punctuation that were not noted in review of the chart prior to signing ED Disposition - Plan for ED Patient: Referrals: Rimma Vallejo MD [Primary Care Provider] -
--- NOTE | 2019-01-15 15:07 | ED.DEP ---
ED Disposition - Plan for ED Patient: Instructions: BRONCHITIS, Antiobiotic Treatment (Adult) Prescriptions: Azithromycin 250 mg PO DAILY #4 tab Prescription Printed Referrals: Rimma Vallejo MD [Primary Care Provider] -
[2019-01-15] MEDS: Ipratropium/Albuterol Sulfate 3 ML AMPUL.NEB INHALATION (15:15)
[2019-01-15] MEDS: Azithromycin 250 MG Tablet 500 MG PO (15:28)
== END 2019-01-15 15:29 | disposition home or self-care (01) ==
LOC: ED 15:22
PROVIDERS: Emergency Provider Emergency Medicine; Family Provider Internal Medicine; PCP Internal Medicine
DX: J20.9 Acute bronchitis, unspecified (principal); J45.909 Unspecified asthma, uncomplicated; E11.22 Type 2 diabetes mellitus with diabetic chronic kidney disease; I13.0 Hypertensive heart and chronic kidney disease with heart failure and stage 1 through stage 4 chronic kidney disease, or unspecified chronic kidney disease; N18.9 Chronic kidney disease, unspecified; I50.9 Heart failure, unspecified; I25.10 Atherosclerotic heart disease of native coronary artery without angina pectoris; E78.00 Pure hypercholesterolemia, unspecified; G47.33 Obstructive sleep apnea (adult) (pediatric); Z87.01 Personal history of pneumonia (recurrent); Z86.73 Personal history of transient ischemic attack (TIA), and cerebral infarction without residual deficits; Z79.01 Long term (current) use of anticoagulants; Z79.4 Long term (current) use of insulin; Z79.84 Long term (current) use of oral hypoglycemic drugs; Z79.02 Long term (current) use of antithrombotics/antiplatelets; Z79.899 Other long term (current) drug therapy
CPT/HCPCS: 71045; 80048; 84484; 85025; 93005; 94640; 94760; 99251; 99283; A4216; G0463

== ENCOUNTER 2019-04-30 00:50 | Observation (INO) | payer MEDICARE, SELFPAY ==
[2019-01-15 13:58] VITALS: BMI 37.6
[2019-04-30] VITALS (9 sets, daily range): BP systolic 129–150; BP diastolic 75–98; PULSE 64–75; RESP 16–20; TEMP 36.6–36.9; O2SAT 95–96; BMI 42.3; BMI 40.0
--- NOTE | 2019-04-30 01:06 | CT_ITS ---
STUDY: CT BRAIN WITHOUT CONTRAST REASON FOR EXAM: Male, 68 years old. SOB X 2-3 HOURS, WEAKNESS RADIATION DOSAGE (If Supplied By Facility): CTDIvol = ( 44.99 ) mGy, DLP = ( 846.73 ) mGycm TECHNIQUE: Transaxial CT imaging of the brain was performed without administration of intravenous contrast material. Individualized dose optimization techniques were used for this CT. COMPARISON: No relevant priors. FINDINGS: Normal soft tissue structures. Normal calvarium. Normal size ventricles and extra-axial spaces for the patient''s age. There are areas of decreased attenuation within the white matter tracts of the supratentorial brain, consistent with microvascular disease changes. Normal basal ganglia and thalami. Normal brainstem. Normal cerebellum. There is no intracranial hemorrhage. There are no findings of an acute ischemic infarction. Normal visualized paranasal sinuses. CT/Brain/Head without Contrast IMPRESSION: Chronic involutional changes of the brain. Electronically Signed: Jitendra Tinajero, at 2:12 EST Tel , Service support ,
--- NOTE | 2019-04-30 01:06 | RAD_ITS ---
STUDY: X-RAY CHEST REASON FOR EXAM: Male, 68 years old. C/O SOB X 2+ HOURS TECHNIQUE: Single AP portable view of the chest. COMPARISON: None. FINDINGS: Pacemaker is seen on the left side. The lungs are clear and expanded. There is no demonstrated pleural abnormality. Normal size heart. Normal mediastinum and lakeisha. Normal visualized pulmonary arteries. Normal visualized aortic arch and descending thoracic aorta. Normal visualized thoracic spine. There is degenerative osteoarthritis of the bilateral shoulders. There is no demonstrated abnormality of the visualized soft tissue structures of the upper abdomen. RAD/Chest 1 View (Portable) IMPRESSION: Degenerative changes, as described above. No demonstrated acute cardiopulmonary process. Electronically Signed: Jitendra Tinajero, at 1:46 EST Tel , Service support ,
--- NOTE | 2019-04-30 01:06 | EKG12_ITS ---
Test Reason : SOB Blood Pressure : / mmHG Vent. Rate : 070 BPM Atrial Rate : 070 BPM P-R Int : 214 ms QRS Dur : 114 ms QT Int : 466 ms P-R-T Axes : 017 -22 -79 degrees QTc Int : 503 ms Sinus rhythm with sinus arrhythmia with 1st degree A-V block Anterolateral infarct , age undetermined Prolonged QT Abnormal ECG Confirmed by CHELLY HYDE, PATIENCE ([id number]), associate entertainment editor SARI PEREIRA ([id number]) on 05/01/2019 8:05:19 AM Referred By: ANNEL Confirmed By:ALISA SPAULDING MD
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
[2019-04-30 01:16] LABS: Absolute Lymphocyte Count 2.25 X10^3/uL (0.83-4.51); Absolute Neutrophil Count 4.2 X10^3/uL (2.0-7.7); Basophil# 0.05 X10^3/uL; Basophil% 0.7 % (0-1); Eosinophil# 0.17 X10^3/uL; Eosinophils% 2.3 % (0-5); Hematocrit 42.7 % (40-54); Hemoglobin 13.3 g/dL (13.0-16.5); Lymphocyte # 2.25 X10^3/ul (4.0); Lymphocyte % 30.9 % (19-41); Mean Corp Hgb Conc 31.1 g/dL (32-36); Mean Corpuscular Hgb 28.1 pg (27.0-32.0); Mean Corpuscular Volume 90.3 fL (80-94); Monocyte# 0.56 X10^3/uL; Monocyte% 7.7 % (0-10); NRBC Flagged by Analyzer 0 % (0-5); Neutrophil # 4.23 X10^3/uL (2.7-7.7); Platelet Count 196 K/mm3 (150-450); RBC Distribution Width CV 13.3 % (11.6-14.6); RBC Distribution Width SD 44.2 fl (35.1-43.9); Red Blood Count 4.73 M/mm3 (4.6-6.2); White Blood Count 7.3 K/mm3 (4.4-11.0)
[2019-04-30 01:25] LABS: International Normalized Ratio 1.9; Prothrombin Time (Protime)PT. 21.3 SECONDS (11.7-14.9)
[2019-04-30 01:35] LABS: Anion Gap 4 (5-15); BUN 18 mg/dL (7-18); BUN/Creat Ratio 13.3 RATIO (10-20); Calcium,Total 8.4 mg/dL (8.5-10.1); Chloride 103 mmol/L (98-107); Creatinine, Serum 1.35 mg/dL (0.70-1.30); EST Glomerular Filtration Rate 56 mL/min (>60); Est Glom Filt Rate - Afr Amer 68 mL/min (>60); Estimated Creatinine Clearance 54.83 ml/min; Glucose 194 mg/dL (74-106); Potassium 4.4 mmol/L (3.5-5.1); Sodium Level 138 mmol/L (136-145)
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
--- NOTE | 2019-04-30 03:27 | CT_ITS ---
STUDY: CTA HEAD AND NECK WITH CONTRAST REASON FOR EXAM: Male, 68 years old. NEURO DEFICIT, ACUTE, STROKE SUSPECTED, WEAKNESS. RADIATION DOSAGE (If Supplied By Facility): CTDIvol = ( 48.26 ) mGy, DLP = ( 941.94 ) mGycm TECHNIQUE: CT angiography was performed with a multi-detector CT scanner. Data acquisition was obtained from the skull base through the vertex following intravenous administration of IV 100mL [id number]-370. MIP images were reconstructed from the axial data set. Post-processing of the angiographic images was performed, with multiplanar reformation and 3D reconstruction. Individualized dose optimization techniques were used for this CT. COMPARISON: No relevant priors. FINDINGS: Normal bilateral petrous carotid arteries. There is calcified plaque formation of the right cavernous carotid artery, with a mild stenosis (less than 50%). There is calcified plaque formation of the left cavernous carotid artery, with a mild stenosis (less than 50%). Normal right A1 segments of the anterior cerebral artery. Normal left A1 segments of the anterior cerebral artery. Normal intact anterior communicating artery (ACOM). Normal bilateral A2 segments of the anterior cerebral arteries. Normal right M1 and M2 segments of the middle cerebral arteries, with a normal M1 bifurcation. Normal left M1 and M2 segments of the middle cerebral arteries, with a normal M1 bifurcation. There is non-visualization of the right posterior communicating artery (PCOM). There is non-visualization of the left posterior communicating artery (PCOM). Normal bilateral vertebral arteries. Normal basilar artery with a normal basilar bifurcation. The visualized bilateral superior cerebellar (SCA) arteries are normal. Normal bilateral P1, P2 and visualized P3 segments of the posterior cerebral arteries. There is no demonstrated aneurysm of the [place]. There is no demonstrated abnormality of the visualized brain. AORTIC ARCH: There is atherosclerotic calcific plaque formation of the aortic arch and great vessels arising from the aortic arch, without a hemodynamically significant stenosis. There is a normal origin of the brachiocephalic, left common carotid, and left subclavian arteries. RIGHT CAROTID ARTERIES: Normal right common carotid artery (CCA). There is mild atherosclerotic plaque formation with minimal narrowing of the right carotid bulb. Normal origin of the right internal carotid (ICA) artery without a hemodynamically significant stenosis. Normal visualized cervical portion of the right internal carotid artery. Normal origin of the right external carotid artery (ECA). LEFT CAROTID ARTERIES: Normal left common carotid artery (CCA). There is mild atherosclerotic plaque formation with minimal narrowing of the left carotid bulb. Normal origin of the left internal carotid (ICA) artery without a hemodynamically significant stenosis. Normal visualized cervical portion of the left internal carotid artery. Normal origin of the left external carotid artery (ECA). 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 There is no significant stenosis in the right vertebral artery which mainly supplied the basilar artery. 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 N.B. : The above information has been verbally conveyed by Jitendra Tinajero to patient nurse, VANESSA, on 04/30/2019 04:19:59 (ET). Electronically Signed: Jitendra Tinajero, at 4:21 EST Tel , Service support ,
--- NOTE | 2019-04-30 04:59 | PCM.DEATH ---
Preliminary Cause of Heart Failure Date of Admission: 04/30/19 Date of : 04/30/19 - Principle Diagnosis Heart Failure Problem List: Active and Suspected Problems (Last Reviewed 04/30/19 @ 04:[address] Marv Lima MD) TIA (transient ischemic attack) (Acute) Hospital Course The patient is a 68 year old M with a significant history of CAD s/p stent; ischemic cardiomyopathy (EF on 05/09/2018 via left ventriculogram of cardiac cath was 15%), Stage C NHYA Class III status post ICD; diabetes mellitus; and CKD stage III who presented to emergency department with left-sided weakness that lasted for about 10 minutes. His symptoms started about 3 hours prior to presentation. Associated with his symptom is nausea and lightheadedness. Also reportedly his lips turned blue. Further, in the last 3 to 4 months he has had dyspnea on exertion with minimal activities. Stat head and neck CTA was ordered. Patient was admitted at telemetry unit for management of probable TIA and progressively worsening heart failure symptoms. While at the [place] patient's face turned blue, rapid response was called. While in the rapid response blood glucose was in the 150s to 160s and heart rate was 56. Patient lost his pulse and was not breathing. Code Blue was called. ACLS with compression was began. Head and neck CTA results returned with occlusion of segment V3 of left vertebral artery. Meanwhile ACLS was ongoing. Patient was in PEA with pacer spikes capturing and with bradycardia. With CPR and patient net getting a pulse patient's discussed with patient's daughter and family decided that CPR should be discontinued. Patient had no pulse. Pacemaker/ICD was demagnetized. He had some agonal breathing which disappeared. Time of was 0443 on 04/30/2019. Suspect heart failure as cause of Code Visit OBSV E&M: 12437 Observation care discharge
--- NOTE | 2019-04-30 05:00 | PCM.CODE.B ---
Analia Quijano Summary Patient returned from the bathroom at the [facility] and was lying in semi-Fowlers position and his face turned blue. Rapid response was called. Patient's blood glucose was not hypoglycemic. Heart rate was 56. Patient then lost his pulse and stopped breathing. ANALIA QUIJANO was called and ACLS with chest compression was begun. Normal saline was started at wide open. Patient was in PEA with pacemaker capturing. Patient received epinephrine and magnesium. While code was ongoing situation was discussed with who requested that we continue CPR because of patient's daughter was coming to the hospital. Later came to patient room and said that patient daughter wants CPR to be called off. CPR was called off. Magnet was placed on patient's ICD. Time of was 0443 on 04/30/2019.
[2019-04-30 06:16] LABS: BNP,B-Type NATRIURETIC PEPTIDE 244.9 pg/mL (0-100)
[2019-04-30 06:30] LABS: Bedside Glucose 167 mg/dL (70-110)
== END 2019-04-30 03:22 ==
LOC: ED 02:15 → PCU 03:05
PROVIDERS: Admitting Provider Hospitalist; Emergency Provider Emergency Medicine; PCP Internal Medicine; Visit Provider Hospitalist
DX: I46.9 Cardiac arrest, cause unspecified (principal); I13.0 Hypertensive heart and chronic kidney disease with heart failure and stage 1 through stage 4 chronic kidney disease, or unspecified chronic kidney disease; I50.9 Heart failure, unspecified; I25.5 Ischemic cardiomyopathy; I25.10 Atherosclerotic heart disease of native coronary artery without angina pectoris; E11.22 Type 2 diabetes mellitus with diabetic chronic kidney disease; N18.3 Chronic kidney disease, stage 3 (moderate); R00.1 Bradycardia, unspecified; R53.1 Weakness; J45.909 Unspecified asthma, uncomplicated; E78.5 Hyperlipidemia, unspecified; E66.01 Morbid (severe) obesity due to excess calories; Z68.41 Body mass index [BMI] 40.0-44.9, adult; G47.33 Obstructive sleep apnea (adult) (pediatric); E11.42 Type 2 diabetes mellitus with diabetic polyneuropathy; Z95.810 Presence of automatic (implantable) cardiac defibrillator; Z95.5 Presence of coronary angioplasty implant and graft; Z79.899 Other long term (current) drug therapy; Z79.02 Long term (current) use of antithrombotics/antiplatelets; Z79.4 Long term (current) use of insulin; Z79.01 Long term (current) use of anticoagulants; F41.9 Anxiety disorder, unspecified; F32.9 Major depressive disorder, single episode, unspecified
CPT/HCPCS: 70450; 70496; 70498; 71045; 80048; 82962; 83880; 84484; 85025; 85610; 85730; 92950; 93005; 99218; 99285; J7030; Q9967; A4216; G0378; J3475